=== PATIENT | female | born 1995 | race Two or more races ===

== ENCOUNTER → 2020-03-14 12:12 | Outpatient (BNVA) | payer OTHER, SELFPAY | PROVIDERS: PCP Internal Medicine; Visit Provider Surgery | DX: E66.01 Morbid (severe) obesity due to excess calories (principal); Z68.41 Body mass index [BMI] 40.0-44.9, adult; R06.02 Shortness of breath | CPT/HCPCS: 99212 ==

== ENCOUNTER 2020-03-25 11:40 | Outpatient (REF) | payer OTHER, SELFPAY ==
--- NOTE | 2020-03-25 11:50 | ECG_ITS ---
Test Reason : PREOP Blood Pressure : / mmHG Vent. Rate : 062 BPM Atrial Rate : 062 BPM P-R Int : 132 ms QRS Dur : 086 ms QT Int : 408 ms P-R-T Axes : 009 016 006 degrees QTc Int : 414 ms Normal sinus rhythm with sinus arrhythmia Normal ECG When compared with ECG of 02-SEP-2018 12:30, No significant change was found Referred By: Cathi Carolina Electronically Signed By:LOPEZ BOYLE MD
--- NOTE | 2020-03-25 12:20 | XR_ITS ---
EXAMINATION: XR CHEST CLINICAL INFORMATION: Shortness of breath COMPARISON: Previous chest x-ray August 2018 TECHNIQUE: 2 views of the chest were obtained. FINDINGS: No significant abnormality is noted involving the heart, lungs, mediastinum, bony thorax or soft tissues. XR/XR chest 2V IMPRESSION: Unremarkable examination.
[2020-03-25 12:22] LABS: MANUAL DIFF FLAG NO
[2020-03-25 12:31] LABS: Basophils Percent Auto 0.4 % (0-2); Eosinophils Absolute Auto 0.1 X10*3/uL (0.0-0.4); Eosinophils Percent Auto 2.7 % (0-4); Hematocrit 39.7 % (37-47); Hemoglobin 13.4 g/dl (12.0-16.0); Imm Gran Abs Auto 0.01 X10*3/uL (0.00-0.03); Imm Gran Pct Auto 0.2 % (0.0-0.4); Lymphocytes Absolute Auto 1.7 X10*3/uL (1.2-4.9); Mean Corpuscular HGB Conc 33.8 g/dl (31.0-35.0); Mean Corpuscular Hemoglobin 30.4 pg (27.0-33.0); Mean Platelet Volume 9.2 fL (9.4-12.3); Monocytes Absolute Auto 0.3 X10*3/uL (0.1-1.2); Monocytes Percent Auto 6.7 % (2-11); Neutrophils Absolute Auto 2.4 X10*3/uL (2.0-8.3); Platelet Count 377 X10*3/uL (160-400); Red Blood Count 4.41 X10*6/uL (4.20-5.50); Red Cell Distribution Width 12.4 % (11.0-16.0); White Blood Count 4.5 X10*3/uL (4.8-10.8)
[2020-03-25 13:09] LABS: Alanine Aminotransferase 22 U/L (0-31); Albumin Level 4.3 g/dL (3.5-5.0); Alkaline Phosphatase 65 U/L (39-117); Anion Gap 15 (12-20); Aspartate Amino Transferase 18 U/L (5-31); Bilirubin Total 0.4 mg/dL (0.0-1.0); Blood Urea Nitrogen 10 mg/dL (9-16); C Reactive Protein 0.33 mg/dL (< or = 0.50); Calcium 8.9 mg/dL (8.4-10.2); Carbon Dioxide 22 mmol/L (22-29); Chloride 108 mmol/L (96-108); Cholesterol 160 mg/dL; Estimated Glomerular Filt Rate > 60; Glucose Fasting 90 mg/dL (60-99); HDL Cholesterol 41 mg/dL; Iron 73 mcg/dL (30-160); LDL Cholesterol Calculated 102 mg/dl; Percent Iron Saturation 19 % (15-50); Potassium 4.4 mmol/l (3.3-5.1); Sodium 141 mmol/L (135-145); Total Iron Binding Capacity 394 mcg/dL (228-428); Total Protein 7.1 g/dL (6.5-8.0); Triglycerides 88 mg/dL; Unsaturated Iron Binding 321 ug/dL
[2020-03-25 13:23] LABS: Thyroid Stimulating Hormone 0.83 uIU/mL (0.32-4.0); Vitamin D 25-OH Total 10.5 ng/mL (>30)
[2020-03-25 13:44] LABS: Vitamin B12 705 pg/mL (200-900)
[2020-03-28 16:32] LABS: Calcium (PTHI) 9.1 mg/dL (8.6-10.2); PTHI 47 pg/mL (14-64)
[2020-03-28 23:57] LABS: Zinc 73 mcg/dL (60-130)
[2020-03-29 12:47] LABS: Vitamin B1 8 nmol/L (8-30)
[2020-03-30 22:08] LABS: Vitamin A 41 mcg/dL (38-98)
== END 2020-03-25 11:41 | disposition home or self-care (01) ==
LOC: HO.LAB 11:40
PROVIDERS: PCP Internal Medicine; Visit Provider Surgery
DX: Z01.818 Encounter for other preprocedural examination (principal); R06.02 Shortness of breath
CPT/HCPCS: 36415; 71046; 80053; 80061; 82306; 82607; 83540; 83970; 84425; 84443; 84590; 84630; 85025; 86140; 93005

== ENCOUNTER → 2020-03-31 08:08 | Outpatient (BNVA) | payer OTHER, SELFPAY | PROVIDERS: PCP Internal Medicine; Visit Provider Surgery ==

== ENCOUNTER → 2020-04-14 08:11 | Outpatient (BNVA) | payer OTHER, SELFPAY | PROVIDERS: PCP Internal Medicine; Visit Provider Dietitian, Registered ==

== ENCOUNTER → 2022-01-24 12:48 | Outpatient (BNVA) | payer OTHER, SELFPAY | PROVIDERS: PCP Internal Medicine; Visit Provider Physician Assistant Surgical | DX: E66.01 Morbid (severe) obesity due to excess calories (principal); Z68.41 Body mass index [BMI] 40.0-44.9, adult | CPT/HCPCS: 99212 ==

== ENCOUNTER 2022-01-30 09:05 | Outpatient (REF) | payer OTHER, SELFPAY ==
--- NOTE | ~2022-01-30 | XR_ITS ---
EXAMINATION: XR CHEST CLINICAL INFORMATION: Obesity COMPARISON: Previous chest x-ray most recent March 2020 TECHNIQUE: 2 views of the chest were obtained. FINDINGS: No significant abnormality is noted involving the heart, lungs, mediastinum, bony thorax or soft tissues. XR/XR chest 2V IMPRESSION: Unremarkable examination.
[2022-01-30 09:17] LABS: MANUAL DIFF FLAG NO
--- NOTE | 2022-01-30 09:27 | ECG_ITS ---
Test Reason : rhythm ck Blood Pressure : / mmHG Vent. Rate : 070 BPM Atrial Rate : 070 BPM P-R Int : 140 ms QRS Dur : 086 ms QT Int : 396 ms P-R-T Axes : 017 011 -03 degrees QTc Int : 427 ms Normal sinus rhythm with sinus arrhythmia Normal ECG When compared with ECG of 25-MAR-2020 11:55, No significant change was found Referred By: Konstantin Davis Electronically Signed By:VIVIAN BUITRAGO MD
[2022-01-30 09:59] LABS: Basophils Percent Auto 0.8 % (0-2); Eosinophils Absolute Auto 0.2 X10*3/uL (0.0-0.4); Eosinophils Percent Auto 3.8 % (0-4); Hematocrit 38.9 % (37.0-47.0); Hemoglobin 12.8 g/dl (12.0-16.0); Imm Gran Abs Auto 0.02 X10*3/uL (0.00-0.03); Imm Gran Pct Auto 0.5 % (0.0-0.4); Lymphocytes Absolute Auto 1.4 X10*3/uL (1.2-4.9); Lymphocytes Percent Auto 35.5 % (20-40); Mean Corpuscular HGB Conc 32.9 g/dl (31.0-35.0); Mean Corpuscular Hemoglobin 28.6 pg (27.0-33.0); Mean Corpuscular Volume 86.8 fL (80.0-98.0); Mean Platelet Volume 9.4 fL (9.4-12.3); Monocytes Absolute Auto 0.2 X10*3/uL (0.1-1.2); Monocytes Percent Auto 5.8 % (2-11); Neutrophils Absolute Auto 2.1 x10*3/uL (2.0-8.3); Neutrophils Percent Auto 53.6 % (45-73); Platelet Count 385 X10*3/uL (160-400); Red Blood Count 4.48 X10*6/uL (4.20-5.50); Red Cell Distribution Width 13.1 % (11.0-16.0)
[2022-01-30 10:14] LABS: Estimated Average Glucose 91 mg/dL; Hemoglobin A1c % 4.8 %
[2022-01-30 10:46] LABS: Alanine Aminotransferase 34 U/L (0-31); Albumin Level 4.1 g/dL (3.5-5.0); Alkaline Phosphatase 68 U/L (39-117); Anion Gap 18 (12-20); Aspartate Amino Transferase 27 U/L (5-31); Bilirubin Total 0.3 mg/dL (0.0-1.0); Blood Urea Nitrogen 10 mg/dL (9-16); C Reactive Protein 0.23 mg/dL (< or = 0.50); Calcium 8.5 mg/dL (8.4-10.2); Carbon Dioxide 19 mmol/L (22-29); Chloride 106 mmol/L (96-108); Cholesterol 166 mg/dL; Estimated Glomerular Filt Rate > 60; Ferritin 15 ng/mL (10-122); Glucose Random 87 mg/dL (60-115); HDL Cholesterol 45 mg/dL; Insulin 9 uU/mL (2-29); Iron 60 mcg/dL (30-160); LDL Cholesterol Calculated 103 mg/dl; Percent Iron Saturation 15 % (15-50); Potassium 4.6 mmol/L (3.3-5.1); Sodium 138 mmol/L (135-145); TSH reflex Free T4 1.07 uIU/mL (0.32-4.0); Total Iron Binding Capacity 402 mcg/dL (228-428); Triglycerides 90 mg/dL; Unsaturated Iron Binding 342 ug/dL
[2022-01-30 12:52] LABS: Vitamin B12 723 pg/mL (200-900)
[2022-01-30 13:40] LABS: Vitamin D 25-OH Total 25.1 ng/mL (>30)
[2022-02-02 13:06] LABS: Calcium (PTHI) 8.6 mg/dL (8.6-10.2); PTHI 55 pg/mL (16-77)
[2022-02-05 02:37] LABS: Zinc 87 mcg/dL (60-130)
[2022-02-05 06:02] LABS: Vitamin B1 12 nmol/L (8-30)
[2022-02-06 10:55] LABS: Vitamin A 49 mcg/dL (38-98)
== END 2022-01-30 09:06 | disposition home or self-care (01) ==
LOC: HO.LAB 09:05
PROVIDERS: PCP Internal Medicine; Visit Provider Physician Assistant Surgical
DX: E66.01 Morbid (severe) obesity due to excess calories (principal)
CPT/HCPCS: 36415; 71046; 80053; 80061; 82306; 82607; 82728; 82746; 83036; 83525; 83540; 83970; 84425; 84443; 84590; 84630; 85025; 86140; 93005

== ENCOUNTER → 2022-02-20 10:00 | Outpatient (BNVA) | payer OTHER, SELFPAY | PROVIDERS: PCP Internal Medicine; Referring Provider Physician Assistant Surgical; Visit Provider Counselor Mental Health | DX: F50.81 Binge eating disorder (principal); E66.01 Morbid (severe) obesity due to excess calories; Z68.41 Body mass index [BMI] 40.0-44.9, adult | CPT/HCPCS: 90791 ==

== ENCOUNTER → 2022-02-27 09:24 | Outpatient (BNVA) | payer OTHER, SELFPAY | PROVIDERS: PCP Internal Medicine; Referring Provider Physician Assistant Surgical; Visit Provider Dietitian, Registered | DX: E66.9 Obesity, unspecified (principal); Z68.41 Body mass index [BMI] 40.0-44.9, adult | CPT/HCPCS: 97802 ==

== ENCOUNTER → 2022-03-27 10:30 | Outpatient (BNVA) | payer OTHER, SELFPAY | PROVIDERS: PCP Internal Medicine; Visit Provider Counselor Mental Health | DX: F50.81 Binge eating disorder (principal); E66.01 Morbid (severe) obesity due to excess calories; Z68.41 Body mass index [BMI] 40.0-44.9, adult | CPT/HCPCS: 90832 ==

== ENCOUNTER 2022-04-04 08:53 | Outpatient (REF) | payer OTHER, SELFPAY ==
[2022-04-07 15:17] LABS: H Pylori Breath Test Negative (Negative)
== END 2022-04-04 08:54 | disposition home or self-care (01) ==
LOC: CF 08:53
PROVIDERS: PCP Internal Medicine; Visit Provider Physician Assistant Surgical
DX: E66.01 Morbid (severe) obesity due to excess calories (principal); Z68.41 Body mass index [BMI] 40.0-44.9, adult; F50.81 Binge eating disorder
CPT/HCPCS: 36415; 83013; 99202

== ENCOUNTER → 2022-04-09 09:07 | Outpatient (BNVA) | payer OTHER, SELFPAY | PROVIDERS: PCP Internal Medicine; Visit Provider Physician Assistant Surgical | DX: E66.01 Morbid (severe) obesity due to excess calories (principal); Z68.41 Body mass index [BMI] 40.0-44.9, adult | CPT/HCPCS: 99212 ==

== ENCOUNTER 2022-05-18 08:19 | Outpatient (REF) | payer OTHER, SELFPAY ==
--- NOTE | ~2022-05-18 | US_ITS ---
EXAMINATION: US COMPLETE ABDOMEN WITH LIVER ELASTOGRAPHY CLINICAL INFORMATION: Morbid/severe obesity. COMPARISON: Ultrasound abdomen with Elastography CT 09/29/2018. TECHNIQUE: Real-time imaging of the abdominal viscera. Noninvasive ultrasound liver fibrosis assessment is performed using Ha ElastPQ point quantification shear wave elastography (2D-SWE) with a C5-2 MHz transducer. Multiple elastography samples are obtained. FINDINGS: PANCREAS: Normal. The visualized pancreatic head and body are normal in appearance. The remainder of the pancreas is obscured from visualization by the overlying bowel gas. ABDOMINAL AORTA: The proximal, middle, and distal aortic segments are normal in caliber. INFERIOR VENA CAVA: Visualized portions are normal. LIVER: The liver demonstrates normal size, contour and increased echogenicity. No focal lesion or intrahepatic biliary duct dilatation. The right lobe measures 14.2 cm in length. The left lobe measures 8.4 cm in length. Portal flow is hepatopedal Shear wave liver elastography median stiffness is 1.38 m/s (reference: normal median stiffness is 1.3 m/s or less). IQR/median stiffness to assess sampling precision is 0.04 (reference: good quality data set is IQR/median stiffness of 0.15 or less). GALLBLADDER: Normal. The gallbladder is physiologically distended without evidence of stones, sludge, polyps, wall thickening or pericholecystic fluid. COMMON BILE DUCT: Normal in caliber measuring 0.3 cm in diameter. RIGHT KIDNEY: Normal. No hydronephrosis. No renal calculi or focal parenchymal lesions. The kidney measures 13.3 cm in maximum dimension. LEFT KIDNEY: No hydronephrosis. No renal calculi or focal parenchymal lesions. The kidney measures 11.9 cm in maximum dimension. A lobulated left kidney contour is noted. There is trace fullness of the left pelvis which appears lobulated. SPLEEN: Normal. The spleen measures 11.2 cm in maximum dimension. FREE FLUID: None. US/US abdomen comp w elastography IMPRESSION: 1. Mild hepatic steatosis without focal lesion. 2. Trace fullness of pelvis with a lobulated left knee contour. 3. Liver elastography: Median liver stiffness measures 1.38 m/s. Previously it measured 1.7 m/s and has decreased since last ultrasound 09/29/2018. The improvement could be due to technical factors on previous study with better scan on the present study. REFERENCE: Society of Radiologists in Ultrasound Liver Stiffness Thresholds (2020): LIVER STIFFNESS THRESHOLDS: *Liver Stiffness equal or less than 1.3 m/s: High probability of being normal. *Liver Stiffness less than 1.7 m/s: In the absence of other known clinical signs, rules out compensated advanced chronic liver disease. *Liver Stiffness 1.7-2.1 m/s: Suggestive of compensated advanced chronic liver disease but need further test for confirmation. *Liver Stiffness over 2.1 m/s: Rules in compensated advanced chronic liver disease. *Liver Stiffness over 2.4 m/s: Suggestive of clinically significant portal hypertension. QUALITY OF DATA SET: *IQR/Median value equal or less than 0.15 implies a quality data set. *IQR/Median value over 0.15 implies a poor quality data set. SIGNIFICANT CHANGE FROM PRIOR EXAM: Significant change if liver stiffness measurement is 10% or greater from prior exam. OTHER CONSIDERATIONS: The stage of liver fibrosis may be overestimated in the setting of acute hepatitis, liver inflammation, elevated liver function tests, hepatic vascular congestion, obstructive cholestasis, non-fasting state, and infiltrative diseases such as amyloidosis and lymphoma. In some patients with NAFLD, the liver stiffness thresholds for compensated advanced chronic liver disease may be lower. In causes other than viral hepatitis and NAFLD, liver stiffness thresholds are not well established.
--- NOTE | ~2022-05-18 | FL_ITS ---
EXAMINATION: XR FLUOROSCOPY UPPER GI WITH AIR CLINICAL INFORMATION: Morbid/severe obesity due to excess calories. COMPARISON: None. TECHNIQUE: Routine upper GI air-contrast study is performed. FINDINGS: Following oral administration of thick barium and effervescent granules there is normal propagation of bolus from the oral cavity through the pharynx, esophagus into stomach without any evidence of obstruction, narrowing or stricture. On placing patient supine and prone lying, the course, caliber and peristalsis of stomach, duodenal bulb and the sweep is normal. Mucosal pattern of the stomach and the duodenum is normal. There is a large gastroesophageal reflux into the upper mid esophagus but no hiatal hernia seen. FLUOROSCOPY TIME: 1.6 minutes. DOSE AREA PRODUCT: 39.266 uGy-m2 (microgray-meter squared) FL/FL upper GI w air IMPRESSION: Large gastroesophageal reflux without hiatal hernia. Otherwise unremarkable upper GI air-contrast study.
== END 2022-05-18 08:20 | disposition home or self-care (01) ==
LOC: HO.US 08:19
PROVIDERS: PCP Internal Medicine; Visit Provider Physician Assistant Surgical
DX: Z01.818 Encounter for other preprocedural examination (principal); E66.01 Morbid (severe) obesity due to excess calories; K21.9 Gastro-esophageal reflux disease without esophagitis
CPT/HCPCS: 74246; 76705; 76981

== ENCOUNTER → 2022-05-23 14:12 | Outpatient (BNVA) | payer OTHER, SELFPAY | PROVIDERS: PCP Internal Medicine; Visit Provider Physician Assistant Surgical ==

== ENCOUNTER → 2022-05-29 09:24 | Outpatient (BNVA) | payer OTHER, SELFPAY | PROVIDERS: PCP Internal Medicine; Visit Provider Surgery | DX: E66.01 Morbid (severe) obesity due to excess calories (principal); Z68.41 Body mass index [BMI] 40.0-44.9, adult; F50.81 Binge eating disorder; E55.9 Vitamin D deficiency, unspecified | CPT/HCPCS: 99212 ==

== ENCOUNTER → 2022-06-01 12:52 | Outpatient (BNVA) | payer OTHER, SELFPAY | PROVIDERS: PCP Internal Medicine; Visit Provider Surgery ==

== ENCOUNTER 2022-06-04 09:50 | Outpatient (REF) | payer OTHER, SELFPAY ==
[2022-06-04 10:12] LABS: MANUAL DIFF FLAG NO
[2022-06-04 10:56] LABS: Basophils Percent Auto 0.5 % (0-2); Eosinophils Absolute Auto 0.1 X10*3/uL (0.0-0.4); Hematocrit 39.5 % (37.0-47.0); Hemoglobin 12.7 g/dl (12.0-16.0); Imm Gran Abs Auto 0.02 X10*3/uL (0.00-0.03); Imm Gran Pct Auto 0.4 % (0.0-0.4); Lymphocytes Absolute Auto 1.5 X10*3/uL (1.2-4.9); Lymphocytes Percent Auto 27.2 % (20-40); Mean Corpuscular HGB Conc 32.2 g/dl (31.0-35.0); Mean Corpuscular Volume 83.9 fL (80.0-98.0); Mean Platelet Volume 8.9 fL (9.4-12.3); Monocytes Absolute Auto 0.2 X10*3/uL (0.1-1.2); Monocytes Percent Auto 4.1 % (2-11); Neutrophils Absolute Auto 3.7 x10*3/uL (2.0-8.3); Neutrophils Percent Auto 65.8 % (45-73); Platelet Count 404 X10*3/uL (160-400); Red Blood Count 4.71 X10*6/uL (4.20-5.50); Red Cell Distribution Width 13.2 % (11.0-16.0); White Blood Count 5.6 X10*3/uL (4.8-10.8)
[2022-06-04 10:59] LABS: Prothrombin Time 11.5 SEC (10.0-13.1)
[2022-06-04 11:01] LABS: Partial Thromboplastin Time 31.4 SEC (26.0-36.4)
[2022-06-04 11:11] LABS: Estimated Average Glucose 91 mg/dL; Hemoglobin A1c % 4.8 %
[2022-06-04 11:53] LABS: Alanine Aminotransferase 16 U/L (0-31); Albumin Level 4.2 g/dL (3.5-5.0); Alkaline Phosphatase 66 U/L (39-117); Anion Gap 15 (12-20); Aspartate Amino Transferase 16 U/L (5-31); Bilirubin Total 0.5 mg/dL (0.0-1.0); Blood Urea Nitrogen 12 mg/dL (9-16); C Reactive Protein 0.19 mg/dL (< or = 0.50); Calcium 8.9 mg/dL (8.4-10.2); Carbon Dioxide 21 mmol/L (22-29); Chloride 104 mmol/L (96-108); Cholesterol 186 mg/dL; Estimated Glomerular Filt Rate > 60; Glucose Random 87 mg/dL (60-115); HDL Cholesterol 50 mg/dL; Iron 55 mcg/dL (30-160); LDL Cholesterol Calculated 116 mg/dl; Percent Iron Saturation 14 % (15-50); Potassium 4.4 mmol/L (3.3-5.1); Sodium 136 mmol/L (135-145); Total Iron Binding Capacity 380 mcg/dL (228-428); Triglycerides 103 mg/dL; Unsaturated Iron Binding 325 ug/dL
[2022-06-04 12:07] LABS: Ferritin 10 ng/mL (10-122); TSH reflex Free T4 0.93 uIU/mL (0.32-4.0); Vitamin B12 789 pg/mL (200-900); Vitamin D 25-OH Total 31.7 ng/mL (>30)
[2022-06-05 16:13] LABS: Calcium (PTHI) 9.5 mg/dL (8.6-10.2); PTHI 31 pg/mL (16-77)
[2022-06-07 01:43] LABS: Zinc 83 mcg/dL (60-130)
[2022-06-08 12:23] LABS: Vitamin B1 15 nmol/L (8-30)
[2022-06-08 17:59] LABS: Vitamin A 54 mcg/dL (38-98)
== END 2022-06-04 09:51 | disposition home or self-care (01) ==
LOC: HO.LAB 09:50
PROVIDERS: PCP Internal Medicine; Visit Provider Surgery
DX: F50.81 Binge eating disorder (principal); E66.01 Morbid (severe) obesity due to excess calories; Z68.39 Body mass index [BMI] 39.0-39.9, adult
CPT/HCPCS: 36415; 80053; 80061; 82306; 82607; 82728; 83036; 83540; 83970; 84425; 84443; 84590; 84630; 85025; 85610; 85730; 86140

== ENCOUNTER 2022-06-06 06:11 | Inpatient (IN) | payer OTHER, SELFPAY ==
[2022-05-24 14:15] VITALS: BMI 40.3
--- NOTE | 2022-06-05 10:47 | HO.ANESPROP2 ---
Documented by User: Rachna Dietz NP 06/05/22 10:49 HPI - Anesthesia Eval Consult details Narrative: 27yo F for Gastrectomy Sleeve Egd,possible diaphragmatic hernia,possible ventral hernia,possible open PMFSH Active Problems Active Problems: All Active Problems (Updated 05/24/22 @ 14:18 by Shazia Gonzalez, NEYDA) Body mass index (BMI) of 40.1-44.9 in adult (Acute) Preoperative examination (Acute) Shortness of breath (Acute) Vitamin D deficiency (Acute) BMI 39.0-39.9,adult (Acute) Binge-eating disorder, mild (Acute) Morbid obesity due to excess calories (Acute) Past Medical History Medical History Depression Low back pain Morbid obesity due to excess calories Family History Family History Father No problems noted. Mother No problems noted. Son No problems noted. Son No problems noted. Maternal Grandfather Brain cancer Maternal Aunt Breast cancer Son Hypertrophic cardiomyopathy Sister No problems noted. Sister No problems noted. Sister No problems noted. Surgical History Surgical History Hx of section No pertinent past surgical history Social History Social History Household Members: Family Are you a primary health care consultant to a significant other at home: Yes (3 children, youngest 18 months) Do you presently have visiting nurse or other home services: No Alcohol intake: former Patient Tobacco Use Status: Never used Tobacco Use of substances other than those prescribed or required for medical reasons: No Have you been hit, kicked, punched, or otherwise hurt by someone within the past year? If so, by whom?: No Are you DNR?: No Advance Directives: No Advance Directives Information Provided: Yes Advance Directives on File: No Recently lost weight without trying: No Nutrition Risks: No Nutritional Risk Patient : No FDLMP: 05/16/2022 : No Poor oral hygiene: No Meds Allergies Allergy/AdvReac Type Severity Reaction Status Date / Time No Known Allergies Allergy Verified 05/29/22 09:38 Home Medications Medication Instructions Recorded Confirmed Last Taken Type fluoxetine 40 mg capsule 40 mg PO DAILY 01/16/22 06/06/22 06/05/22 History Exam Exam Date and Time: June 05, 2022 1047 Height,Weight and Vital Signs: Height 5 ft 8 in Weight 120.202 kg Pertinent Lab Results Pertinent Lab Results: Laboratory Tests 06/04/22 10:06 Blood Type A Positive Antibody Screen NEGATIVE Laboratory Tests 06/04/22 06/04/22 10:10 10:10 WBC 5.6 Hgb 12.7 Hct 39.5 Plt Count 404 H Sodium 136 Potassium 4.4 Chloride 104 Carbon Dioxide 21 L BUN 12 Creatinine 0.73 Narrative Narrative: EKG 01/2022 Vent. Rate : 070 BPM ? ? Atrial Rate : 070 BPM ?? P-R Int : 140 ms? QRS Dur : 086 ms ? ? QT Int : 396 ms ? ? ? P-R-T Axes : 017 011 -03 degrees ?? QTc Int : 427 ms ? Normal sinus rhythm with sinus arrhythmia Normal ECG When compared with ECG of 25-MAR-2020 11:55, No significant change was found Assessment and Plan Assessment Anesthesia Assessment: Chart Reviewed Documented by User: George Bueno MD 06/06/22 17:50 PMFSH Past Medical History Medical History Depression Low back pain Morbid obesity due to excess calories Functional capacity: independent ambulation Family History Family History Father No problems noted. Mother No problems noted. Son No problems noted. Son No problems noted. Maternal Grandfather Brain cancer Maternal Aunt Breast cancer Son Hypertrophic cardiomyopathy Sister No problems noted. Sister No problems noted. Sister No problems noted. Family history of problems with anesthesia: No Surgical History Surgical History Hx of section No pertinent past surgical history History of Problems with Anesthesia: No Social History Social History Household Members: Family Are you a primary health care consultant to a significant other at home: Yes (3 children, youngest 18 months) Do you presently have visiting nurse or other home services: No Alcohol intake: former Patient Tobacco Use Status: Never used Tobacco Use of substances other than those prescribed or required for medical reasons: No Have you been hit, kicked, punched, or otherwise hurt by someone within the past year? If so, by whom?: No Are you DNR?: No Advance Directives: No Advance Directives Information Provided: Yes Advance Directives on File: No Recently lost weight without trying: No Nutrition Risks: No Nutritional Risk Patient : No FDLMP: 05/16/2022 : No Poor oral hygiene: No Meds Allergies Allergy/AdvReac Type Severity Reaction Status Date / Time No Known Allergies Allergy Verified 05/29/22 09:38 Home Medications Medication Instructions Recorded Confirmed Last Taken Type fluoxetine 40 mg capsule 40 mg PO DAILY 01/16/22 06/06/22 06/05/22 History Exam Airway Mallampati Class: III TM Dist: >3cm Neck ROM: Full Loose/Missing/Broken Teeth: Yes Heart: S1,S2 Lungs: b/l breath sounds Assessment and Plan Assessment Anesthesia Assessment: Anesthesia Plan Discussed Final Anesthetic Review Family History of Problems with Anesthesia: No History of Problems with Anesthesia: No NPO: Yes ASA Class: III Final Preanesthetic Review: Meds/Allgs Chart Reviewed, Consent Obtained/Reviewed and Anes Risks/Benef Reviewed Patient Risk: Intermediate Procedure Risk: Intermediate Assessment/Block/Sedation in SS: Assess/Block/Sedation-SS Anesthetic Plan Anesthetic Plan: GA and Agree w/ Assess. and Plan Disposition: Standard PACU
[2022-06-05 12:58] LABS: COVID-19 Test Negative (Negative); IDNOW Serial# BCCEAD1C
[2022-06-06] VITALS (11 sets, daily range): BP systolic 114–148; BP diastolic 64–93; PULSE 65–113; RESP 14–24; TEMP 36.1–37; O2SAT 97–100
--- OUTSIDE RECORDS SUMMARY | 2022-06-06 06:15 | XMS_ITS | Continuity of Care Document ---
Author Name Unknown Organization [facility] Address [address] [place] [id number]- Care Team Providers Care News Wire Photo Operator Name Role Phone Shellie Tian MD Primary Care Physician [phone] Encounter [facility] Date(s): 04/12/22 - 05/12/[address] [address]- Allergies, Adverse Reactions, Alerts No Known Allergies Immunizations Given and Recorded Vaccine Date Status Refusal Reason influenza virus vaccine, inactivated 01/11/22 Give n influenza virus vaccine, inactivated 12/30/20 Give n influenza virus vaccine, inactivated 12/20/17 Timbo rded influenza virus vaccine, inactivated 04/14/15 Timbo rded SARS-CoV-2 mRNA ([id number]) vax 09/21/21 Recorded SARS-CoV-2 (COVID-19) mRNA BNT-162b2 vac 12/30/20 Given tetanus/diphtheria/pertussis, acel(Tdap) 10/20/20 Given tetanus/diphtheria/pertussis, acel(Tdap) 11/08/17 Recorded tetanus/diphtheria/pertussis, acel(Tdap) 07/29/15 Given Medications acetaminophen 325 mg oral tablet 650 mg, 2, tablet, By Mouth, 3 times a day, PRN, # 24 tablet, Refills 0, Tot. Refills 0, Maintenance, for pain, 12/30/20 3:55:00 EDT, Route to Pharmacy Electronically, [facility]/pharmacy #[id number], 173, cm, 12/30/20 0:15:00 EDT, Height, 130.5, kg, 12/28/20 8:26... Start Date: 12/30/20 Stop Date: 01/13/21 Status: Ordered cetirizine 10 mg oral capsule 1 capsule = 10 mg, By Mouth, 2 times a day, PRN for allergy symptoms, # 60 capsule, 1 Refills, Maintenance, 09/07/21 14:15:00 EDT, Capsule, [facility]/pharmacy #[id number], Partial fill upon patient request if the prescription is for a schedule II opioid drug., 17... Start Date: 09/07/21 Status: Ordered diclofenac 1% topical gel 1 application, Topically, 4 times a day, # 100 Gm, 11 Refills, Maintenance, 08/24/21 11:48:00 EDT, Gel, [facility]/pharmacy #[id number], Partial fill upon patient request if the prescription is for a schedule II opioid drug., 173, cm, 08/10/21 16:06:00 EDT, Height... Start Date: 08/24/21 Status: Ordered FLUoxetine 40 mg oral capsule 1 capsule = 40 mg, By Mouth, Daily, # 30 capsule, 4 Refills, Maintenance, 01/11/22 15:58:00 EDT, Capsule, [facility]/pharmacy #[id number], discontinue sertraline, 173, cm, 01/11/22 15:29:00 EDT, Height, 130.5, kg, 12/28/20 8:26:00 EDT, Dry Weight Start Date: 01/11/22 Status: Ordered ibuprofen 600 mg oral tablet 1/2 TO 1 TAB, By Mouth, Every 6 hours, PRN, # 60 tablet, Refills 0, Maintenance, NEEDED FOR PAIN, 11/29/21 5:00:00 EDT, Route to Pharmacy Electronically, [id number], 173, cm, 09/07/21 13:31:00 EDT, Height, 130.5, kg, 12/28/20 8:26:00 EDT, Dry... Start Date: 11/29/21 Status: Ordered metFORMIN 500 mg oral tablet, extended release 2 tablet = 1,000 mg, By Mouth, 2 times a day, 1 tab daily x 1 week then 1 tab BID x 1 week then 2 tabs BID, # 120 tablet, 4 Refills, Maintenance, 01/11/22 15:58:00 EDT, [facility]/pharmacy #[id number], Partial fill upon patient request if the prescription is for a... 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 Currently quarantining for two weeks Social History Social History Type Response Smoking Status Never (less than 100 in lifetime) entered on: 05/23/20 Sex Patient Care team information Care Team Personnel Name: Shellie Tian MD Position: [facility] Primary Care Physician Member Role: PCP Address: Address: [address] [place] [address], -[facility] [place] [address]- Care Team Related Persons Name: MEREDITH HAYES Address: Address: home [address] [place] [address] Name: ALISHA MAYFIELD Address: home [address] [place] [address]
--- OUTSIDE RECORDS SUMMARY | 2022-06-06 06:16 | XMS_ITS | Continuity of Care Document ---
Author Name Unknown Organization [facility] Address [address] [place] [address]- Care Team Providers Care Computer Methods Analyst Name Role Phone Shellie Tian MD Primary Care Physician Encounter [facility] Date(s): 04/12/22 - 05/12/22 [facility] [address] [place] [id number] Allergies, Adverse Reactions, Alerts No Known Allergies Immunizations Given and Recorded Vaccine Date Status Refusal Reason influenza virus vaccine, inactivated 01/11/22 Give n influenza virus vaccine, inactivated 12/30/20 Give n influenza virus vaccine, inactivated 12/20/17 Timbo rded influenza virus vaccine, inactivated 04/14/15 Timbo rded SARS-CoV-2 mRNA ([id number]) vax 09/21/21 Recorded SARS-CoV-2 (COVID-19) mRNA BNT-162b2 vac 12/30/20 Given tetanus/diphtheria/pertussis, acel(Tdap) 10/20/20 Given tetanus/diphtheria/pertussis, acel(Tdap) 11/08/17 Recorded tetanus/diphtheria/pertussis, acel(Tdap) 07/29/15 Given Medications acetaminophen 325 mg oral tablet 650 mg, 2, tablet, By Mouth, 3 times a day, PRN, # 24 tablet, Refills 0, Tot. Refills 0, Maintenance, for pain, 12/30/20 3:55:00 EDT, Route to Pharmacy Electronically, [facility]/pharmacy #[id number], 173, cm, 12/30/20 0:15:00 EDT, Height, 130.5, kg, 12/28/20 8:26... Start Date: 12/30/20 Stop Date: 01/13/21 Status: Ordered cetirizine 10 mg oral capsule 1 capsule = 10 mg, By Mouth, 2 times a day, PRN for allergy symptoms, # 60 capsule, 1 Refills, Maintenance, 09/07/21 14:15:00 EDT, Capsule, [facility]/pharmacy #[id number], Partial fill upon patient request if the prescription is for a schedule II opioid drug., 17... Start Date: 09/07/21 Status: Ordered diclofenac 1% topical gel 1 application, Topically, 4 times a day, # 100 Gm, 11 Refills, Maintenance, 08/24/21 11:48:00 EDT, Gel, [facility]/pharmacy #[id number], Partial fill upon patient request if the prescription is for a schedule II opioid drug., 173, cm, 08/10/21 16:06:00 EDT, Height... Start Date: 08/24/21 Status: Ordered FLUoxetine 40 mg oral capsule 1 capsule = 40 mg, By Mouth, Daily, # 30 capsule, 4 Refills, Maintenance, 01/11/22 15:58:00 EDT, Capsule, [facility]/pharmacy #[id number], discontinue sertraline, 173, cm, 01/11/22 15:29:00 EDT, Height, 130.5, kg, 12/28/20 8:26:00 EDT, Dry Weight Start Date: 01/11/22 Status: Ordered ibuprofen 600 mg oral tablet 1/2 TO 1 TAB, By Mouth, Every 6 hours, PRN, # 60 tablet, Refills 0, Maintenance, NEEDED FOR PAIN, 11/29/21 5:00:00 EDT, Route to Pharmacy Electronically, [facility]ORE [id number], 173, cm, 09/07/21 13:31:00 EDT, Height, 130.5, [...] Team Personnel Name: Shellie Tian MD Position: [facility] Primary Care Physician Member Role: PCP Address: Address: [address] [place] [address], -[facility] [place] [address]- Care Team Related Persons Name: MEREDITH HAYES Address: Address: home [address] [place] [address] [place] Name: ALISHA MAYFIELD Address: home [address] [place] [address]
--- OUTSIDE RECORDS SUMMARY | 2022-06-06 06:16 | XMS_ITS | Continuity of Care Document ---
Author Name Unknown Organization [facility] Address [address] [place] [address]- Care Team Providers Care White Work Cleaner Name Role Phone Shellie Tian MD Primary Care Physician [phone] [place] [facility] [place]s): 04/17/22 - 05/17/22 [facility] [address] [place] [address] Allergies, Adverse Reactions, Alerts No Known Allergies Immunizations Given and Recorded Vaccine Date Status Refusal Reason influenza virus vaccine, inactivated 01/11/22 Give n influenza virus vaccine, inactivated 12/30/20 Give n influenza virus vaccine, inactivated 12/20/17 Timbo rded influenza virus vaccine, inactivated 04/14/15 Timbo rded SARS-CoV-2 mRNA ([id number]) vax 09/21/21 Recorded SARS-CoV-2 (COVID-19) mRNA BNT-162b2 vac 12/30/20 Given tetanus/diphtheria/pertussis, acel(Tdap) 10/20/20 Given tetanus/diphtheria/pertussis, acel(Tdap) 11/08/17 Recorded tetanus/diphtheria/pertussis, acel(Tdap) 07/29/15 Given Medications acetaminophen 325 mg oral tablet 650 mg, 2, tablet, By Mouth, 3 times a day, PRN, # 24 tablet, Refills 0, Tot. Refills 0, Maintenance, for pain, 12/30/20 3:55:00 EDT, Route to Pharmacy Electronically, [facility]/pharmacy #[id number], 173, cm, 12/30/20 0:15:00 EDT, Height, 130.5, kg, 12/28/20 8:26... Start Date: 12/30/20 Stop Date: 01/13/21 Status: Ordered cetirizine 10 mg oral capsule 1 capsule = 10 mg, By Mouth, 2 times a day, PRN for allergy symptoms, # 60 capsule, 1 Refills, Maintenance, 09/07/21 14:15:00 EDT, Capsule, [facility]/pharmacy #[id number], Partial fill upon patient request if the prescription is for a schedule II opioid drug., 17... Start Date: 09/07/21 Status: Ordered diclofenac 1% topical gel 1 application, Topically, 4 times a day, # 100 Gm, 11 Refills, Maintenance, 08/24/21 11:48:00 EDT, Gel, [facility]/pharmacy #[id number], Partial fill upon patient request if the prescription is for a schedule II opioid drug., 173, cm, 08/10/21 16:06:00 EDT, Height... Start Date: 08/24/21 Status: Ordered FLUoxetine 40 mg oral capsule 1 capsule = 40 mg, By Mouth, Daily, # 30 capsule, 4 Refills, Maintenance, 01/11/22 15:58:00 EDT, Capsule, [facility]/pharmacy #[id number], discontinue sertraline, 173, cm, 01/11/22 15:29:00 EDT, Height, 130.5, kg, 12/28/20 8:26:00 EDT, Dry Weight Start Date: 01/11/22 Status: Ordered ibuprofen 600 mg oral tablet 1/2 TO 1 TAB, By Mouth, Every 6 hours, PRN, # 60 tablet, Refills 0, Maintenance, NEEDED FOR PAIN, 11/29/21 5:00:00 EDT, Route to Pharmacy Electronically, [facility]ORE [id number], 173, cm, 09/07/21 13:31:00 EDT, Height, 130.5, [...] Team Personnel Name: Shellie Tian MD Position: [facility] Primary Care Physician Member Role: PCP Address: Address: [address] [place] [address], -[facility] [place] [address]- Care Team Related Persons Name: MEREDITH HAYES Address: Address: home [address] [place] [address] [place] Name: ALISHA MAYFIELD Address: [address] [place] [address]
--- OUTSIDE RECORDS SUMMARY | 2022-06-06 06:16 | XMS_ITS | Continuity of Care Document ---
Author Name Unknown Organization [facility] Address [address] [place] [address]- Care Team Providers Care Transmission Maintenance Supervisor Name Role Phone Shellie Tian MD Primary Care Physician [phone] [place] [facility] [place]): [place]/12/22 - 05/12/22 [facility] [address] [place] [id number] Allergies, Adverse Reactions, Alerts No Known Allergies Immunizations Given and Recorded Vaccine Date Status Refusal Reason influenza virus vaccine, inactivated 01/11/22 Give n influenza virus vaccine, inactivated 12/30/20 Give n influenza virus vaccine, inactivated 12/20/17 Timbo rded influenza virus vaccine, inactivated 04/14/15 Timbo rded SARS-CoV-2 mRNA ([id number]) vax 09/21/21 Recorded SARS-CoV-2 (COVID-19) mRNA BNT-162b2 vac 12/30/20 Given tetanus/diphtheria/pertussis, acel(Tdap) 10/20/20 Given tetanus/diphtheria/pertussis, acel(Tdap) 11/08/17 Recorded tetanus/diphtheria/pertussis, acel(Tdap) 07/29/15 Given Medications acetaminophen 325 mg oral tablet 650 mg, 2, tablet, By Mouth, 3 times a day, PRN, # 24 tablet, Refills 0, Tot. Refills 0, Maintenance, for pain, 12/30/20 3:55:00 EDT, Route to Pharmacy Electronically, [facility]/pharmacy #[id number], 173, cm, 12/30/20 0:15:00 EDT, Height, 130.5, kg, 12/28/20 8:26... Start Date: 12/30/20 Stop Date: 01/13/21 Status: Ordered cetirizine 10 mg oral capsule 1 capsule = 10 mg, By Mouth, 2 times a day, PRN for allergy symptoms, # 60 capsule, 1 Refills, Maintenance, 09/07/21 14:15:00 EDT, Capsule, [facility]/pharmacy #[id number], Partial fill upon patient request if the prescription is for a schedule II opioid drug., 17... Start Date: 09/07/21 Status: Ordered diclofenac 1% topical gel 1 application, Topically, 4 times a day, # 100 Gm, 11 Refills, Maintenance, 08/24/21 11:48:00 EDT, Gel, [facility]/pharmacy #[id number], Partial fill upon patient request if the prescription is for a schedule II opioid drug., 173, cm, 08/10/21 16:06:00 EDT, Height... Start Date: 08/24/21 Status: Ordered FLUoxetine 40 mg oral capsule 1 capsule = 40 mg, By Mouth, Daily, # 30 capsule, 4 Refills, Maintenance, 01/11/22 15:58:00 EDT, Capsule, [facility]/pharmacy #[id number], discontinue sertraline, 173, cm, 01/11/22 15:29:00 EDT, Height, 130.5, kg, 12/28/20 8:26:00 EDT, Dry Weight Start Date: 01/11/22 Status: Ordered ibuprofen 600 mg oral tablet 1/2 TO 1 TAB, By Mouth, Every 6 hours, PRN, # 60 tablet, Refills 0, Maintenance, NEEDED FOR PAIN, 11/29/21 5:00:00 EDT, Route to Pharmacy Electronically, [id number], 173, cm, 09/07/21 13:31:00 EDT, Height, 130.5, [...] Team Personnel Name: Shellie Tian MD Position: [facility] Primary Care Physician Member Role: PCP Address: Address: [address] [place] [address], -[facility] [place] [address]- Care Team Related Persons Name: MEREDITH HAYES Address: Address: home [address] [place] [address] [place] Name: ALISHA MAYFIELD Address: home [address] [place] [address]
[2022-06-06 06:19] LABS: UPreg QC Valid YES; Urine Pregnancy NEGATIVE (NEGATIVE)
[2022-06-06] MEDS: Lactated Ringers 1,000 ML 150 ML IVCONT (06:35)
[2022-06-06] MEDS: Scopolamine 1.5 MG PATCH.TD.3 TRANSDERMA (06:35)
--- NOTE | 2022-06-06 07:02 | MHC.SHP ---
Pre-Procedural Eval Section A Date of Service: 06/06/22 The patient is an INPATIENT: Yes The History & Physical has been completed within 30 days and I have reviewed it.: Yes Section B Chief Complaint: obesity Allergies: Allergies Allergy/AdvReac Type Severity Reaction Status Date / Time No Known Allergies Allergy Verified 05/29/22 09:38 Plan I have reviewed the history and physical and performed a pertinent physical examination on my patient. No changes have occurred unless specified. Time Spent With Patient Time: Total time managing care of this patient today ____ minutes.
--- NOTE | 2022-06-06 07:03 | PM.PROC ---
Brief Operative Note Date of procedure: 06/06/22 Procedure: Preop diagnosis: [Morbid obesity] Postop diagnosis: [same, no hiatal hernia] Procedure: [Laparoscopic sleeve gastrectomy, gastropexy, intraoperative upper endoscopy] Surgeon: Lj Smith MD Assist: [Gris Sorensen PA-C] Anesthesia: [GET, Marcaine, 0.5% with epi] Estimated blood loss: [3cc] Specimen: [Portion of stomach with fundus] Intraoperative findings: [Grossly normal liver and stomach] Indications: [The patient is a 27-year-old woman who reports her heaviest weight as 292 lb/BMI 44.4 when she re-entered the surgical weight loss program. She had originally enrolled in the surgical weight loss program about a year ago but then withdrew after becoming . After previously failing multiple medical weight loss attempts including fad diets and calorie restriction, Education regarding diet and increased activity in options of bariatric surgery were reviewed. The inherent need to remain committed to healthy diet choices and increased activity to augment surgical weight loss was discussed at length and her questions answered. The patient wanted to proceed with a sleeve gastrectomy and discussion of surgery options followed. I reviewed the inherent risks of the planned procedure, a laparoscopic sleeve gastrectomy, possible hiatal hernia repair, possible open surgery, possible ventral hernia repair and intraoperative endoscopy, which include, but are not limited to: Bleeding that could require another operation or blood transfusion; the inherent risks of transfusion reaction infectious disease from blood transfusions; the risk of staple line leaks that could cause sepsis, multi-system organ failure and ; the risk of mesenteric or deep vein thrombosis of the lower extremities that could cause a fatal pulmonary embolism was reviewed; the risk of GERD that could require conversion to gastric bypass was discussed; the risk of recurrent hiatal hernia, especially in the setting of weight regain was reviewed. The risk of weight regain if maladaptive eating and sedentary behavior continue was discussed. The importance of proper diet and increased activity to augment surgical weight loss and the fact that no operation would result in weight loss of poor dietary decisions and sedentary behavior are resumed were discussed at length and apparently understood. The patient had the option of having a hand stone polisher present and declined this option.] Procedure: [The patient was identified by myself in the preoperative holding area and again an operating room 6. The patient was placed supine on the operating table. Safety straps were utilized and a footboard utilized. The patient was induced in general endotracheal anesthesia administered with excellent effect. An appropriate time-out was performed. The patient's abdomen was then widely prepped and draped in the usual manner for surgery using chlorprep. Antibiotics per protocol were administered by Anesthesia, Ancef, 3gm IV. SCD were in place. After infiltrating preemptive local in the skin and subcutaneous tissues in the left upper quadrant, a stab incision was made sharply in the left subcostal abdomen and the Veress needle inserted without incident. An appropriate drop test was performed then a pneumoperitoneum of 15 mmHg was obtained using carbon dioxide. Opening pressures were 7 mmHg. Next, a 5 mm 0 degree scope over a 5 mm Optiview trocar was used to access the abdomen via the epigastric incision in the midline. Once the abdomen was entered, the the trocar obturator was removed and the laparoscope was used to confirm there was no injury from the Veress needle nor trocar insertion injury to the bowel or mesentery, then the scope was switched to a 5 mm 45 degree laparoscope. Next, using preemptive local, additional 5 mm trocars were placed under direct laparoscopic vision on the patient's left abdomen, then right and the 5 mm midline trocar upsized to a 12 mm to accommodate the stapler. The patient was then positioned in reverse Trendelenburg and the liver retractor deployed through the right lateral 5 mm trocar and secured. A 40 Chinese ViSiGi bougie was inserted by Anesthesia per os and advanced to the stomach to decompress. It was then withdrawn to the GE junction all under direct laparoscopic vision. Dissection was begun along the greater curvature using the 5 mm [place] LigaSure for hemostasis and continued to the left jairo of the diaphragm. Dissection was then carried towards the pylorus to 3-4 cm from the pylorus and retro gastric adhesions lysed. The gastroesophageal fat pad was carefully mobilized taking care to avoid injury to the esophagus and stomach and dissection carried towards the short gastrics taking care to avoid injury to the spleen and splenic artery. The diaphragmatic hiatus was carefully examined for a hernia, and no apparent hernia was appreciated. Next, the 40 Fr ViSiGi bougie was advanced by anesthesia under direct vision and laparoscopic guidance and positioned in the antrum approximately 3 cm from the pylorus using laparoscopic graspers to serve as a guide for a stapled sleeve gastrectomy. Stapling was performed with AEON Endo-IGOR stapler with a purple 45 and then orange 45 and 60 loads. The bougie served as a guide to maintain the same sleeve caliber to avoid stricture & sleeve distortion. The 10 mm clip knowledge management advisor was used to apply additional clips to the staple line. Care was taken to be sure that the sleeve laid flat and was without stricture. Once the sleeve was complete, the portion of stomach was placed in the lower abdomen to be sent for removal and permanent section. The staple line, gastrocolic omentum, spleen and short gastric areas were all inspected for hemostasis which was found to be good. The ViSiGi bougie used for a leak test by reducing the reverse Trendelenburg and instilling sterile saline. Anesthesia ran of O2 at 1 L per minute via the bougie and no bubbles were demonstrated from the staple line. Next, the bougie was withdrawn under laparoscopic vision used to suction the esophagus and hypopharynx and then discarded. After inspecting again for hemostasis, a gastropexy was performed using 2-0 Polysorb suture to secure the sleeve gastrectomy to the gastrocolic omentum. Next, I broke scrub perform an on-table upper endoscopy to assess the sleeve and the esophagus and stomach. The patient was returned to neutral position and the Olympus 160 gastroscope was advanced taking care to preserve the endotracheal tube. The esophagus was intubated without incident. Minimal air was insufflated and the scope advanced into the newly formed sleeve. The staple line was inspected for hemostasis and the morphology of the sleeve appeared straight with a uniform diameter. Intraoperatively, there was no evidence of staple line leak seen during laparoscopy as air was insufflated via endoscope. The scope was then used to aspirate the air from the sleeve withdrawn and removed. I then rescrubbed to return to the operative field and again inspected the field for hemostasis. After final assessment for hemostasis, the patient was returned to neutral position, a Cordell used to withdraw the resected gastric specimen which was sent for permanent section. The fascia of the 12 mm midline was closed using an 0 Polysorb figure of 8 on a suture passer under direct laparoscopic vision. The abdomen was then deflated and all trocars removed. The suture was then tied and the skin closed with 4-0 Monocryl subcuticular sutures. The abdomen was then washed and dried, benzoin and Steri-Strips applied followed by Tegaderms. The patient tolerated the procedure well was then extubated the recover in stable condition. All sponge needle and instrument counts were correct x2. At the patient's request, I contacted Anuel Will at [phone] by telephone and apprised him of the operation. Typical postoperative course and expected discharge were reviewed as well as activity restrictions. His questions seemed to be satisfactorily answered.]
--- NOTE | 2022-06-06 07:16 | PHA.MEDREC ---
Pharmacy Consult ? Medication Reconciliation Pharmacy has reviewed the medication reconciliation completed by nursing. Molly Coronel, Jose AlfredoD
--- NOTE | 2022-06-06 10:21 | P.DS_ITS ---
DS: Providers Provider Date of Service: 06/07/22 Date of admission: 06/06/22 06:11 Primary care physician: Shellie Tian MD DS: Summary Hospital Course Hospital Course: ADMITTING DIAGNOSIS: morbid obesity,?depression ? DISCHARGE DIAGNOSIS: same, s/p laparoscopic sleeve gastrectomy and gastropexy ? PAST SURGICAL HISTORY:? ? PROCEDURE: upper endoscopy, laparoscopic sleeve gastrectomy and gastropexy ? DISCHARGE SUMMARY: ? History of Present Illness: ? The patient is a? 27? year-old woman with a BMI of? 40.3 ? kg/m2 and associated co-morbidities as described above. The patient had extensive work-up, lost? ?27 ? lbs preoperatively and was electively scheduled for laparoscopic, possible open sleeve gastrectomy and gastropexy. Risks and complications of the surgery were discussed with the patient in advance, particularly the possibility of , pulmonary embolism, anastomotic leak, bleeding, bowel injury, GERD, cardiac, renal or pulmonary complications. The patient understood all the risks and was in agreement with the surgical plan. ? Hospital Course: ? The patient underwent an uneventful laparoscopic sleeve gastrectomy with gastropexy on the day of admission. Postoperatively, the patient was transferred to the surgical floor. The patient received IV Acetaminophen and IV dilaudid for pain control. Patient was started on bariatric phase 1 diet POD #0. On postoperative day one, the patient was feeling well without nausea, vomiting, fevers, or tachycardia. The patient had some mild incisional pain and the abdomen was soft.? ? On the morning of postoperative day one, the patient was continued on 1 ounce of water or ice every half hour. During the day, the patient did fairly well, having some incisional pain, but able to ambulate adequately and to tolerate liquids well. ? Since the patient is doing well, we decided that the patient was ready to be discharged. The patient was given instructions to follow-up with me next week and to call my office for any fever over 101, persistent abdominal pain, nausea, vomiting, GERD, symptoms of DVT such as calf tenderness, or leg swelling, or pulmonary embolism such as chest pain or shortness of breath.? The patient was also instructed to drink 40-60 ounces of liquids per day using the 1-ounce cups. The patient had been given prescriptions for Tylenol for pain, Zofran prn for nausea, and pantoprazole and carafate previously. The patient was encouraged to ambulate and use the incentive spirometer. The patient was allowed to shower, but no baths, and encouraged to stay active at home. All of these instructions were given to the patient personally. All questions were answered and the patient understood all instructions, the instructions were also given to the patient in print. Time Spent with Patient Time attestation: Total time managing care of this patient today ____ minutes. Discharge coordination time: Less than 30 minutes Quality: Safe Use of Opioids Does Pt have an Active Cancer Diagnosis on the Problem List?: No Quality: Stroke Does the patient have a stroke diagnosis?: No Physical Exam Vital Signs: Vital Signs: Last Vital Signs Temp 97 F 06/06/22 10:12 Pulse 111 H 06/06/22 10:12 Resp 14 06/06/22 10:12 BP 132/84 06/06/22 10:12 Pulse Ox 100 06/06/22 10:12 O2 Del Method Simple Mask 06/06/22 10:12 O2 Flow Rate 6 06/06/22 10:12 BMI result Body Mass Index 40.3 DS: Data Data Completed and Pending Pending studies at discharge: Pending at discharge 06/06/22 09:41 Surgical [PTH] Routine Labs on day of discharge: Laboratory Results - last 24 hr 06/05/22 06/06/22 12:26 06:12 Urine Test NEGATIVE COVID-19 ([facility]) Negative COVID-19 Clin Com See Note Discharge Plan Discharge Anticipated Discharge Date/Time: 06/07/22 10:00 Patient Disposition: Home, Self-Care Discharge Diagnosis: morbid obesity s/p laparoscopic sleeve gastrectomy with gastropexy Referrals: Shellie Tian MD [Primary Care Provider] - 1 Week Discharge Medications: Continued fluoxetine 40 mg capsule 40 mg PO DAILY Discontinued cholecalciferol (vitamin D3) 125 mcg (5,000 unit) capsule 125 mcg PO DAILY Qty: 30 3RF No Action pantoprazole 40 mg tablet,delayed release (DR/EC) 40 mg PO DAILY sucralfate [Carafate] 100 mg/mL suspension 10 ml PO BID Discharge Orders: Discharge Order (Routine); Ordered 06/07/22 Ordered By: Abigail Cloud Activity on Discharge: No heavy lifting Stand Alone Forms: Patient Portal Discharge page Care Plan Goals: weight loss Health Concerns: morbid obesity Plan of Treatment: No tub baths, sex or returning to work until discussed at first post op appointment. No alcohol, tobacco or illegal drug use. Continue to use incentive spirometer hourly while awake. Walk in home for 5- 10 minutes every 2 hours during the first week. Wear abdominal binder with activity. Follow all meal plan instructions from your bariatric surgeon. Review bariatric handbook and call with any questions. Discharge Instructions 1. Please call your doctor or come back to the emergency room should any new symptoms arise. 2. Activity: abstain from alcohol,? limited stair climbing, no bending, no driving, no exercise, no illicit substances, no lifting, no sex, no tub bath, no work. 4. Diet: follow your bariatric surgeons recommendations for advancing diet. 5. Dressing Change/Wound Care: Your incisions are covered with waterproof dressings. You can shower with these and pat dry. Do not rub over dressings or incisions. If the area is tender, you may apply an ice pack for short intervals (no more than 20 minutes on, followed by at least 20 minutes off). Do not apply heat. Do not use creams, lotions, or topical antibiotics unless instructed to do so by your surgeon. 6. Call your doctor if: - Your temperature exceeds 101.5 F - You experience excessive pain or swelling - You have an unexpected reaction to medication - You have excessive bleeding - You experience continued vomiting/nausea - Your incision begins to separate - Your incision shows signs of infection such as increased redness, swelling, excessive pain, heat, or drainage (light blood or clear fluid is normal) General instructions: No lifting greater than 10 lbs for the next 6 weeks[address] driving within 24 hours of taking narcotic pain medications. If you do not move your bowels in the next 2 days, please take milk of magnesia over the counter. Please follow the post op diet and do not advance your diet until you are seen in the office in about 2 weeks. Please walk around your home every hour or two to prevent blood clots from forming in your legs. You do not need to wake from sleeping to walk. Please sleep in a bed or couch to prevent kinking at the hips and knees. Please take your incentive spirometer (your lung wood floor layer) home with you and use it for the next few days to prevent pneumonias. You may shower, no hot tubs, baths or swimming pools. Please call the office with any questions or concerns such as increasing abdominal pain, fever, chills, shortness of breath, chest pain, leg pain or swelling, or redness or drainage from your incisions. Please make sure you are consuming 40-60 ounces of total fluids per day. Avoid all carbonation. Do not hesitate to contact the office with any questions at . The patient's medical history has been reviewed and they are considered low risk for post op DVT and therefore DVT prophylaxis is not considered necessary. Travel after surgery was reviewed. The patient has not disclosed any travel plans during the first 30 days after surgery and they have been advised that within the first 30 days after surgery any bus, plane, train or car travel over 2 hours in duration is contraindicated due to the possibility of developing blood clots from immobility. Any travel, needs to include periods of ambulation of 10 minutes in duration every 2 hours.? The patient was instructed to discuss any plans for travel during this period with their bariatric surgeon. Assessment: s/p laparoscopic sleeve gastrectomy with gastropexy Discharge Date/Time: 06/07/22 09:58
[2022-06-06 10:42] LABS: Hematocrit 36.1 % (37.0-47.0); Hemoglobin 11.8 g/dl (12.0-16.0)
[2022-06-06 10:54] LABS: Anion Gap 13 (12-20); Blood Urea Nitrogen 8 mg/dL (9-16); Calcium 8.4 mg/dL (8.4-10.2); Carbon Dioxide 21 mmol/L (22-29); Chloride 107 mmol/L (96-108); Creatinine Clr Calc Pharmacy 143.6; Estimated Glomerular Filt Rate > 60; Glucose Random 166 mg/dL (60-115); Potassium 4.1 mmol/L (3.3-5.1); Sodium 137 mmol/L (135-145)
--- NOTE | 2022-06-06 10:55 | P.PNGS_ITS ---
Subjective Subjective Date of Service: 06/06/22 Patient reports: nausea Interval history: Patient seen in PACU. She reports some gas pain and nausea but no vomiting. Staff was concerned about the epigastric dressing with some blood staining. Patient denies shortness of breath Physical Exam Vital Signs: Vital Signs: Last Vital Signs Temp 97.2 F 06/06/22 10:42 Pulse 108 H 06/06/22 10:42 Resp 21 H 06/06/22 10:42 BP 123/76 06/06/22 10:42 Pulse Ox 98 06/06/22 10:42 O2 Del Method Nasal Cannula wit h Capnography 06/06/22 10:42 O2 Flow Rate 2 06/06/22 10:42 BMI result Body Mass Index 40.3 On exam she is comfortable She is in no acute respiratory distress Epigastric dressing has some blood staining. Objective Data Active Medications Fentanyl (Fentanyl Citrate/Pf 100 Mcg/2 Ml Vial) 25 mcg IVPUSH Q5M PRN; Protoco l PRN Reason: Pain, Moderate (Pain Scale 4-6 Hydromorphone HCl (Hydromorphone Hcl 0.5 Mg/0.5 Ml Syringe) 0.25 mg IVPUSH Q5M PRN; Protocol PRN Reason: Pain, Severe (Pain Scale 7-10) Lactated Ringer's (Lr) 1,000 mls @ 150 mls/hr IVCONT .[id number] SAMANTA Last Admin: 06/06/22 06:35 Dose: 150 mls/hr Documented By: SAL Labs 06/06/22 10:35 06/06/22 10:35 Labs: Laboratory Results - last 24 hr 06/05/22 06/06/22 06/06/22 12:26 06:12 10:35 Anion Gap 13 Estim Creat Clear Calc 143.6 Estimated GFR > 60 Random Glucose 166 H Calcium 8.4 Urine Test NEGATIVE COVID-19 ([facility]) Negative COVID-19 Clin Com See Note Procedures Date of Service Date of Service: 06/06/22 Progress Note: A&P Assessment and plan (1) S/P laparoscopic sleeve gastrectomy: Status: Acute (2) Body mass index (BMI) of 40.1-44.9 in adult: Status: Acute Plan See orders Continue present management. Time Spent With Patient Time: Total time managing care of this patient today ____ minutes. Quality Stroke Does the patient have a stroke diagnosis?: No VTE Prior VTE?: No VTE Risk Level:: Surgical - moderate VTE Device Contraindication: N/A - Device Ordered VTE Drug Contraindication: Treatment Not Indicated
[2022-06-06] MEDS: Acetaminophen 1,000 MG/100 ML PIGGYBACK 16.7 MG IV ×2 (12:04→19:18)
[2022-06-06] MEDS: Lactated Ringers 1,000 ML 100 ML IVCONT ×2 (12:05→21:33)
[2022-06-06] MEDS: ondansetron HCL 4 MG/2 ML VIAL IVPUSH ×2 (12:19→19:18)
[2022-06-06] MEDS: ceFAZolin Sodium/Dextrose,Iso 2 GM/50 ML PIGGYBACK IV (13:41)
[2022-06-06] MEDS: Metoclopramide HCl 10 MG/2 ML VIAL IVPUSH (14:28)
[2022-06-06] MEDS: Famotidine/PF 20 MG/2 ML VIAL IVPUSH (19:18)
[2022-06-06] MEDS: 0.9 % Sodium Chloride Flush 3 ML SYRINGE IVFLUSH (19:28)
[2022-06-07] MEDS: Acetaminophen 1,000 MG/100 ML PIGGYBACK 16.7 MG IV ×2 (00:47→06:02)
[2022-06-07 03:02] VITALS: BP 127/72; PULSE 62; RESP 16; TEMP 37.1; O2SAT 98
[2022-06-07] MEDS: ondansetron HCL 4 MG/2 ML VIAL IVPUSH (03:20)
[2022-06-07] MEDS: Lactated Ringers 1,000 ML 100 ML IVCONT (06:04)
[2022-06-07 06:27] LABS: MANUAL DIFF FLAG NO
[2022-06-07 06:31] LABS: Basophils Percent Auto 0.3 % (0-2); Eosinophils Percent Auto 0.2 % (0-4); Hemoglobin 10.1 g/dl (12.0-16.0); Imm Gran Abs Auto 0.02 X10*3/uL (0.00-0.03); Imm Gran Pct Auto 0.2 % (0.0-0.4); Lymphocytes Absolute Auto 1.9 X10*3/uL (1.2-4.9); Lymphocytes Percent Auto 21.4 % (20-40); Mean Corpuscular HGB Conc 32.6 g/dl (31.0-35.0); Mean Corpuscular Hemoglobin 27.3 pg (27.0-33.0); Mean Corpuscular Volume 83.8 fL (80.0-98.0); Monocytes Absolute Auto 0.8 X10*3/uL (0.1-1.2); Monocytes Percent Auto 8.8 % (2-11); Neutrophils Percent Auto 69.1 % (45-73); Platelet Count 333 X10*3/uL (160-400); Red Cell Distribution Width 13.4 % (11.0-16.0); White Blood Count 8.7 X10*3/uL (4.8-10.8)
[2022-06-07 06:48] LABS: Anion Gap 13 (12-20); Blood Urea Nitrogen 7 mg/dL (9-16); Calcium 8.3 mg/dL (8.4-10.2); Carbon Dioxide 21 mmol/L (22-29); Chloride 108 mmol/L (96-108); Estimated Glomerular Filt Rate > 60; Glucose Random 91 mg/dL (60-115); Potassium 4.1 mmol/L (3.3-5.1); Sodium 138 mmol/L (135-145)
--- NOTE | 2022-06-07 06:56 | PM.PNGS ---
Subjective Subjective Date of Service: 06/07/22 Patient reports: feels better and tolerating liquids well Interval history: Some vomiting last night after getting up and moving around but that it is resolved. She has no odynophagia regurgitation, no hematemesis or chest pain. She is tolerating sips per protocol and hope being to be discharged later this morning. She reports good analgesia and requested that the epigastric port dressing site be changed since sick at soak and now has crusted dried blood. Physical Exam Vital Signs: Vital Signs: Last Vital Signs Temp 98.7 F 06/07/22 03:02 Pulse 62 06/07/22 03:02 Resp 16 06/07/22 03:02 BP 127/72 06/07/22 03:02 Pulse Ox 98 06/07/22 03:02 O2 Del Method Room Air 06/07/22 03:02 O2 Flow Rate 1.5 06/06/22 11:09 BMI result Body Mass Index 40.3 On exam she is nontoxic and anicteric She is in no acute respiratory distress Abdomen has appropriate incisional tenderness. The epigastric midline dressing and has crusted, dried blood. Will ask nursing or the PA to change before discharge Objective Data Active Medications Famotidine (Famotidine/Pf 20 Mg/2 Ml Vial) 20 mg IVPUSH BID [facility] Last Admin: 06/06/22 19:18 Dose: 20 mg Documented By: DON Fluoxetine HCl (Fluoxetine Hcl 20 Mg Capsule) 40 mg PO DAILY [facility] Hydromorphone HCl (Hydromorphone Hcl 0.5 Mg/0.5 Ml Syringe) 0.25 mg IVPUSH Q4H PRN; Protocol PRN Reason: Pain, Moderate (Pain Scale 4-6 Lactated Ringer's (Lr) 1,000 mls @ 100 mls/hr IVCONT .Q10H [facility] Last Admin: 06/07/22 06:04 Dose: 100 mls/hr Documented By: DON Acetaminophen (Ofirmev) 1,000 mg in 100 mls @ 16.7 mls/hr IV .Q6H [facility] Last Admin: 06/07/22 06:02 Dose: 16.7 mls/hr Documented By: DON Metoclopramide HCl (Metoclopramide Hcl 10 Mg/2 Ml Vial) 10 mg IVPUSH Q6H PRN PRN Reason: Nausea Last Admin: 06/06/22 14:28 Dose: 10 mg Documented By: YARELY Ondansetron HCl (Ondansetron Hcl 4 Mg/2 Ml Vial) 4 mg IVPUSH Q8H [facility] Last Admin: 06/07/22 03:20 Dose: 4 mg Documented By: DON Sodium Chloride (0.9 % Sodium Chloride Flush 3 Ml Syringe) 3 ml IVFLUSH QSHIFT [facility] Last Admin: 06/06/22 19:28 Dose: 3 ml Documented By: DON Labs 06/07/22 05:59 06/07/22 05:59 Labs: Laboratory Results - last 24 hr 06/06/22 06/07/22 06/07/22 10:35 05:59 05:59 MCV 83.8 MCH 27.3 MCHC 32.6 RDW 13.4 Plt Count 333 MPV 9.0 L Immature Gran % (Auto) 0.2 Neut % (Auto) 69.1 Lymph % (Auto) 21.4 [place] % (Auto) 8.8 Eos % (Auto) 0.2 Baso % (Auto) 0.3 Lymph # (Auto) 1.9 [place] # (Auto) 0.8 Eos # (Auto) 0.0 Baso # (Auto) 0.0 Abs Immat Gran (auto) 0.02 Absolute Neuts (auto) 6.0 Absolute Nucleated RBC 0.000 Nucleated RBC % (auto) 0.0 Anion Gap 13 13 Estim Creat Clear Calc 143.6 171.0 Estimated GFR > 60 > 60 Random Glucose 166 H 91 Calcium 8.4 8.3 L Procedures Date of Service Date of Service: 06/07/22 Progress Note: A&P Assessment and plan (1) S/P laparoscopic sleeve gastrectomy: Status: Acute (2) Shortness of breath: Status: Acute (3) Vitamin D deficiency: Status: Acute (4) BMI 39.0-39.9,adult: Status: Acute Plan I suspect the hemoglobin drift is dilutional since the patient has no significant, uncontrollable pain and or tachycardia. Plan for discharge home. The PA will see the patient in give dietary instruction later this morning. Instructions regarding diet and activity reviewed and apparently understood. Time Spent With Patient Time: Total time managing care of this patient today ____ minutes. Quality Stroke Does the patient have a stroke diagnosis?: No VTE Prior VTE?: No VTE Risk Level:: Surgical - moderate VTE Device Contraindication: N/A - Device Ordered VTE Drug Contraindication: Treatment Not Indicated
[2022-06-07] MEDS: FLUoxetine HCl 20 MG CAPSULE 40 MG PO (07:41)
[2022-06-07] MEDS: Famotidine/PF 20 MG/2 ML VIAL IVPUSH (07:42)
[2022-06-07 07:51] VITALS: BP 131/72; PULSE 63; RESP 18; TEMP 36.4; O2SAT 98
--- NOTE | 2022-06-07 09:02 | MHC.CM.PN ---
PATIENT LIVES WITH FAMILY SHE IS FULLY INDEPENDENT NO DME OR VNA SERVICES COVID VACCINATED. PLAN IS HOME TODAY - SELF CARE. MOTHER/HCP WILL PROVIDE TRANSPORT. PATIENT HAS HCP HOME IN PREP FOR THIS SURGERY
[2022-06-07 09:38] VITALS: O2SAT 99
--- NOTE | 2022-06-07 14:11 | HO.POSTANES ---
Post Anesthesia Evaluation Post Anesthesia Evaluation Vital Signs: Vital Signs Temp Pulse Resp BP Pulse Ox O2 Del Method 06/07/22 09:38 99 Room Air 06/07/22 07:51 97.6 F 63 18 131/72 98 Room Air 06/07/22 03:02 98.7 F 62 16 127/72 98 Room Air Anesthesia: General Endotracheal-GETA Mental Status: Awake Pain Control: Satisfactory Nausea/Vomiting: None Hydration: Adequate Anesthesia-Related Issues: No Anes. Related Issues
== END 2022-06-07 09:58 | disposition home or self-care (01) | DRG 403 ==
LOC: HO.SSSA 10:20 → HO.S3 10:27
PROVIDERS: Nurse Practitioner; Physician Assistant Surgical; Admitting Provider Surgery; PCP Internal Medicine; Visit Provider Surgery
PROC: 0DB64Z3 Excision of Stomach, Percutaneous Endoscopic Approach, Vertical (ICD-10-PCS; CPT 43845; principal; 2022-06-06 07:30)
DX: E66.01 Morbid (severe) obesity due to excess calories (principal); F32.A Depression, unspecified; M54.59 Other low back pain; Z68.41 Body mass index [BMI] 40.0-44.9, adult; Z20.822 Contact with and (suspected) exposure to COVID-19; Z79.899 Other long term (current) drug therapy
CPT/HCPCS: 36415; 80048; 81025; 85014; 85018; 85025; 86850; 86900; 86901; 87635; 88307; 88342; C9088; J0131; J0690; J1100; J1170; J2250; J2405; J2550; J2765; J3010

== ENCOUNTER → 2022-06-12 14:50 | Outpatient (BNVA) | payer OTHER, SELFPAY | PROVIDERS: PCP Internal Medicine; Visit Provider Physician Assistant Surgical | DX: E66.9 Obesity, unspecified (principal); Z98.84 Bariatric surgery status; Z68.39 Body mass index [BMI] 39.0-39.9, adult | CPT/HCPCS: 99212 ==

== ENCOUNTER → 2022-07-02 11:27 | Outpatient (BNVA) | payer OTHER, SELFPAY | PROVIDERS: PCP Internal Medicine; Visit Provider Physician Assistant Surgical | DX: E66.9 Obesity, unspecified (principal); Z98.84 Bariatric surgery status; Z68.37 Body mass index [BMI] 37.0-37.9, adult | CPT/HCPCS: 99212 ==

== ENCOUNTER → 2022-08-08 14:00 | Outpatient (BNVA) | payer OTHER, SELFPAY | PROVIDERS: PCP Internal Medicine; Visit Provider Physician Assistant Surgical ==

== ENCOUNTER 2022-09-25 10:56 | Outpatient (AMB) | payer OTHER, SELFPAY ==
--- NOTE | 2022-09-25 11:00 | A.OFFVIS_ITS ---
Intake VS Expanded 09/25/22 11:01 Height 5 ft 8 in Weight 224 lb 3.2 oz BMI 34.1 BP 116/67 Blood Pressure Location Rt brachial Blood Pressure Position Sitting Pulse 76 Pulse Source Pulse Oximeter Temp 97.6 F Temperature Source Temporal Artery Scan Pulse Oximetry 95 Oxygen Delivery Method Room Air Body Fat 94.4 Body Fat Percentage 42.1 Free Fat Mass 129.6 Muscle Mass 123.0 Visceral Mass 8.0 Water Mass 93.2 BMR 1,845 Intake Visit Reasons: (OV) PO LSG 06/06/22 Allergies No Known Allergies Allergy (Verified 09/25/22 11:02) Medication List - Last Reconciled 09/25/22 by AMADEO Bond buspirone 5 mg PO DAILY ferrous sulfate 325 mg PO DAILY sertraline 50 mg PO DAILY HPI HPI Comments History of Present Illness Details This?is a?27?yo female who is s/p LSG 06/06/2022. Presents for 4 month post op visit. Weight at last visit on 08/08/2022 was 235 pounds with a BMI of 35.7, weight today is 224.2 pounds, representing a 10.8 pound weight loss with a BMI today of 34.1.? No complaints of nausea, emesis, abdominal pain or reflux, or constipation. Present meal plan includes: 8-10 Celebrate 2 scoops in 8oz UAM 11-1 Celebrate 2 scoops in 8oz UAM 2-4 Premier 2 scoops in 8oz UAM OR protein water (Pure Protein or Isopure)- usually skips this 5-8 FitCrunch bar- doesn't like this much in evenings will have tuna Exercise routine includes: treadmill or elliptical 2-3x/week, 60 min plus outdoor walking PFSH Medical History (Updated 06/12/22 @ 15:35 by AMADEO Bond) Depression Low back pain Morbid obesity due to excess calories Surgical History Hx of section Family History Father No problems noted. Mother No problems noted. Son No problems noted. Son No problems noted. Maternal Grandfather Brain cancer Maternal Aunt Breast cancer Son Hypertrophic cardiomyopathy Sister No problems noted. Sister No problems noted. Sister No problems noted. Social History Household Members: Family Are you a primary care information associate to a significant other at home: Yes (3 children, youngest 18 months) Do you presently have visiting nurse or other home services: No 75 years or older and lives alone: No Alcohol intake: former Patient Tobacco Use Status: Never used Tobacco Current occupational status: employed Physical Exam Vital Signs: Last Vital Signs Temp 97.6 F 09/25/22 11:01 Pulse 76 09/25/22 11:01 BP 116/67 09/25/22 11:01 Pulse Ox 95 09/25/22 11:01 Oxygen Delivery Method Room Air 09/25/22 11:01 BMI result Body Mass Index 34.1 Assessment & Plan Assessment & Plan (1) Obesity: Code(s): E66.9 - Obesity, unspecified (2) S/P laparoscopic sleeve gastrectomy: Code(s): Z98.84 - Bariatric surgery status Plan Meal plan adjusted as pt is still having some difficulty eating frequently enough to get adequate protein. 2 Celebrate shakes per day with 2 scoops each in 8oz Fairlife milk 2 small meals of 1oz protein PPI and carafate courses complete. RTC 1 month. Meal plan texted to pt and encouraged her to reach out between appts with any questions. Patient is obese and is not considered stable at this time. I spent a total of 30 minutes reviewing/updating records, examining the patient and counseling the patient on weight management as detailed above. Coding Level of Care Code Est Pt Level 4 (87336) Diagnoses Obesity E66.9 S/P laparoscopic sleeve gastrectomy Z98.84
[2022-09-25 11:01] VITALS: BP 116/67; PULSE 76; TEMP 36.4; O2SAT 95; BMI 34.1
== END 2022-09-25 11:30 | disposition home or self-care (01) ==
PROVIDERS: PCP Internal Medicine; Visit Provider Physician Assistant Surgical
DX: E66.9 Obesity, unspecified (principal); Z68.34 Body mass index [BMI] 34.0-34.9, adult; Z90.3 Acquired absence of stomach [part of]; Z98.84 Bariatric surgery status
CPT/HCPCS: 99214

== ENCOUNTER → 2022-09-25 10:56 | Outpatient (BNVA) | payer OTHER, SELFPAY | PROVIDERS: PCP Internal Medicine; Visit Provider Physician Assistant Surgical | DX: E66.9 Obesity, unspecified (principal); Z68.34 Body mass index [BMI] 34.0-34.9, adult; Z98.84 Bariatric surgery status | CPT/HCPCS: 99212 ==

== ENCOUNTER 2023-01-29 12:08 | Outpatient (AMB) | payer OTHER, SELFPAY ==
--- NOTE | 2023-01-29 12:23 | MHC.OFFVISWM ---
Intake VS Expanded 01/29/23 12:34 Blood Pressure Location Rt brachial Blood Pressure Position Sitting Pulse 86 Pulse Source Pulse Oximeter Temp 97.2 F Temperature Source Temporal Artery Scan Pulse Oximetry 99 Oxygen Delivery Method Room Air Height 5 ft 8 in Weight 205 lb 6.4 oz BMI 31.2 Body Fat % 39.2 Body Fat Mass 80.4 Fat Free Mass 124.8 Visceral Fat Rating 6.0 Body Water % 43.7 Body Water Mass 89.8 Muscle Mass/Score 118.4 Basal Metabolic Rate/Score 1,756 Intake Visit Reasons: (OV) PO LSG 06/06/22 Allergies No Known Allergies Allergy (Verified 01/29/23 12:32) Medication List - Last Reconciled 01/29/23 by AMADEO Bond buspirone 5 mg PO DAILY ferrous sulfate 325 mg PO DAILY sertraline 50 mg PO DAILY HPI HPI Comments History of Present Illness Details This?is a?28?yo female who is s/p LSG 06/06/2022. Presents for 8 month post op visit. Weight at last visit on 09/25/2022 was 224.2 pounds with a BMI of 34.1, weight today is 205.4 pounds, representing an 18.8 pound weight loss with a BMI today of 31.2.? No complaints of nausea, emesis, abdominal pain or reflux, or constipation. Pt reports her hydration is on the lower side. Feels like she has been stuck at 205lbs for 2 months. Present meal plan includes: random stuff here and there - inconsistent with meals tried a lewis MVI but did not like it Exercise routine includes: hasn't been able to go to gym, but does have a bike in the basement Did the patient ever have any of these conditions and are they resolved or still being treated? GERD: never RAISA:? never DM:? never HTN:? never Hyperlipidemia:?never Post op complications:? none PFSH Medical History (Updated 06/12/22 @ 15:35 by AMADEO Bond) Low back pain Depression Morbid obesity due to excess calories Surgical History S/P laparoscopic sleeve gastrectomy Hx of section Family History Father No problems noted. Mother No problems noted. Son No problems noted. Son No problems noted. Maternal Grandfather Brain cancer Maternal Aunt Breast cancer Son Hypertrophic cardiomyopathy Sister No problems noted. Sister No problems noted. Sister No problems noted. Household Members: Family Are you a primary primary care coordinator to a significant other at home: Yes (3 children, youngest 18 months) Do you presently have visiting nurse or other home services: No 75 years or older and lives alone: No Alcohol intake: former Patient Tobacco Use Status: Never used Tobacco Current occupational status: employed Physical Exam Const General: cooperative, comfortable and no acute distress Orientation/consciousness: patient oriented x3 GI Other: soft, nontender, nondistended, incisions well healed, no hernia, no masses Neuro General: patient oriented x3 Assessment & Plan Assessment & Plan (1) S/P laparoscopic sleeve gastrectomy: Code(s): Z98.84 - Bariatric surgery status (2) Obesity: Code(s): E66.9 - Obesity, unspecified Plan New meal plan with adequate protein: 2 Fairlife shakes per day One Icelandic yogurt One meal with 4-5 forks protein and up to 5 forks salad or veg if she wants but prioritize protein intake Encouraged resuming exercise- start with 15-20 min several times per week on home bike, increase as able. Labs ordered. RTC 6 weeks to monitor progress. Patient is obese and is not considered stable at this time. I spent a total of 30 minutes reviewing/updating records, examining the patient and counseling the patient on weight management as detailed above. Orders: Orders Complete Blood Count Auto Diff Today Z98.84 - Bariatric surgery status Zinc Today Z98.84 - Bariatric surgery status Comprehensive Met. Panel Today Z98.84 - Bariatric surgery status Vitamin A Today Z98.84 - Bariatric surgery status TSH reflex Free T4 Today Z98.84 - Bariatric surgery status Hemoglobin A1c Today Z98.84 - Bariatric surgery status Insulin Today Z98.84 - Bariatric surgery status Lipid Panel Today Z98.84 - Bariatric surgery status IRON PROFILE Today Z98.84 - Bariatric surgery status Vitamin B12 and Folate Today Z98.84 - Bariatric surgery status Vitamin B1 Today Z98.84 - Bariatric surgery status C Reactive Protein Today Z98.84 - Bariatric surgery status Ferritin Today Z98.84 - Bariatric surgery status PTHI Today Z98.84 - Bariatric surgery status Vitamin D 25-OH Total Today Z98.84 - Bariatric surgery status Coding Level of Care Code Est Pt Level 4 (28377) Diagnoses S/P laparoscopic sleeve gastrectomy Z98.84 Obesity E66.9
[2023-01-29 12:34] VITALS: PULSE 86; TEMP 36.2; O2SAT 99; BMI 31.2
== END 2023-01-29 12:57 | disposition home or self-care (01) ==
PROVIDERS: PCP Internal Medicine; Visit Provider Physician Assistant Surgical
DX: E66.9 Obesity, unspecified (principal); Z68.31 Body mass index [BMI] 31.0-31.9, adult; Z90.3 Acquired absence of stomach [part of]; Z98.84 Bariatric surgery status
CPT/HCPCS: 99214

== ENCOUNTER → 2023-01-29 12:08 | Outpatient (BNVA) | payer OTHER, SELFPAY | PROVIDERS: PCP Internal Medicine; Visit Provider Physician Assistant Surgical | DX: E66.09 Other obesity due to excess calories (principal); Z68.31 Body mass index [BMI] 31.0-31.9, adult; Z90.3 Acquired absence of stomach [part of] | CPT/HCPCS: 99212 ==

== ENCOUNTER 2023-02-11 09:30 | Outpatient (REF) | payer OTHER, SELFPAY ==
[2023-02-11 09:46] LABS: MANUAL DIFF FLAG NO
[2023-02-11 10:27] LABS: Estimated Average Glucose 103 mg/dL; Hemoglobin A1C 86.6627 umol/L; Hemoglobin A1c % 5.2 % (<6.0)
[2023-02-11 10:34] LABS: Basophils Absolute Auto 0.1 X10*3/uL (0.0-0.2); Eosinophils Absolute Auto 0.2 X10*3/uL (0.0-0.4); Eosinophils Percent Auto 3.1 % (0-4); Hematocrit 33.6 % (37.0-47.0); Hemoglobin 10.1 g/dl (12.0-16.0); Imm Gran Abs Auto 0.01 X10*3/uL (0.00-0.03); Imm Gran Pct Auto 0.2 % (0.0-0.4); Lymphocytes Absolute Auto 1.8 X10*3/uL (1.2-4.9); Lymphocytes Percent Auto 37.2 % (20-40); Mean Corpuscular HGB Conc 30.1 g/dl (31.0-35.0); Mean Corpuscular Hemoglobin 24.2 pg (27.0-33.0); Mean Corpuscular Volume 80.4 fL (80.0-98.0); Mean Platelet Volume 8.9 fL (9.4-12.3); Monocytes Absolute Auto 0.3 X10*3/uL (0.1-1.2); Monocytes Percent Auto 6.2 % (2-11); Neutrophils Absolute Auto 2.5 x10*3/uL (2.0-8.3); Neutrophils Percent Auto 52.3 % (45-73); Platelet Count 491 X10*3/uL (160-400); Red Blood Count 4.18 X10*6/uL (4.20-5.50); White Blood Count 4.9 X10*3/uL (4.8-10.8)
[2023-02-11 11:02] LABS: Alanine Aminotransferase 9 U/L (0-31); Albumin Level 4.1 g/dL (3.5-5.0); Alkaline Phosphatase 71 U/L (39-117); Anion Gap 12 (12-20); Aspartate Amino Transferase 14 U/L (5-31); Bilirubin Total 0.4 mg/dL (0.0-1.0); Blood Urea Nitrogen 15 mg/dL (9-16); C Reactive Protein < 0.04 mg/dL (< or = 0.50); Carbon Dioxide 25 mmol/L (22-29); Chloride 109 mmol/L (96-108); Cholesterol 173 mg/dL (<200); Estimated Glomerular Filt Rate > 60; Glucose Random 88 mg/dL (60-115); HDL Cholesterol 53 mg/dL (>40); Iron 28 mcg/dL (30-160); LDL Cholesterol Calculated 101 mg/dL (<100); Percent Iron Saturation 8 % (15-50); Potassium 3.6 mmol/L (3.3-5.1); Sodium 142 mmol/L (135-145); Total Iron Binding Capacity 356 mcg/dL (228-428); Total Protein 7.5 g/dL (6.5-8.0); Triglycerides 95 mg/dL (<150); Unsaturated Iron Binding 328 ug/dL
[2023-02-11 11:25] LABS: Ferritin 8 ng/mL (10-122); TSH reflex Free T4 1.15 uIU/mL (0.32-4.0); Vitamin D 25-OH Total 25.2 ng/mL (>30)
[2023-02-11 11:31] LABS: Folate 5.7 ng/mL (> or = 4.0); Vitamin B12 927 pg/mL (200-900)
[2023-02-11 11:41] LABS: Insulin 6 uU/mL (2-29)
[2023-02-13 16:28] LABS: Zinc 75 mcg/dL (60-130)
[2023-02-15 02:34] LABS: Vitamin A 39 mcg/dL (38-98)
[2023-02-16 08:38] LABS: Vitamin B1 12 nmol/L (8-30)
== END 2023-02-11 09:31 | disposition home or self-care (01) ==
LOC: HO.LAB 09:30
PROVIDERS: Visit Provider Physician Assistant Surgical
DX: Z98.84 Bariatric surgery status (principal)
CPT/HCPCS: 36415; 80053; 80061; 82306; 82607; 82728; 82746; 83036; 83525; 83540; 84425; 84443; 84590; 84630; 85025; 86140

== ENCOUNTER 2023-03-21 10:42 | Outpatient (AMB) | payer OTHER, SELFPAY ==
--- NOTE | 2023-03-21 10:33 | MHC.OFFVISWM ---
Intake VS Expanded 03/21/23 10:35 Height 5 ft 8 in Weight 200 lb BMI 30.4 Intake Visit Reasons: (VIDEO) PO LSG 06/06/22 Allergies No Known Allergies Allergy (Verified 01/29/23 12:32) Medication List - Last Reconciled 03/21/23 by AMADEO Bond buspirone 5 mg PO DAILY cholecalciferol (vitamin D3) 50 mcg PO DAILY ferrous sulfate 325 mg PO DAILY sertraline 50 mg PO DAILY HPI HPI Comments History of Present Illness Details This?is a?28?yo female who is s/p LSG 06/06/2022. Presents for 10 month post op visit. Weight at last visit on 01/29/2023 was 205.4 pounds with a BMI of 31.2, weight today is 200 pounds, representing a 5.4 pound weight loss with a BMI today of 30.4.? No complaints of nausea, emesis, abdominal pain or reflux, or constipation. Present meal plan includes: 2 Fairlife shakes per day One [place]an yogurt One meal with 4-5 forks protein and up to 5 forks salad or veg if she wants but prioritize protein intake I do kind of fall off here and there but tries to be consistent Exercise: at last visit encouraged resuming exercise- start with 15-20 min several times per week on home bike, increase as able [facility] Medical History (Updated 06/12/22 @ 15:35 by AMADEO Bond) Low back pain Depression Morbid obesity due to excess calories Surgical History S/P laparoscopic sleeve gastrectomy Hx of section Family History Father No problems noted. Mother No problems noted. Son No problems noted. Son No problems noted. Maternal Grandfather Brain cancer Maternal Aunt Breast cancer Son Hypertrophic cardiomyopathy Sister No problems noted. Sister No problems noted. Sister No problems noted. Social History Household Members: Family Are you a primary healthcare economics manager to a significant other at home: Yes (3 children, youngest 18 months) Do you presently have visiting nurse or other home services: No Alcohol intake: former Patient Tobacco Use Status: Never used Tobacco Current occupational status: employed Assessment & Plan Assessment & Plan (1) S/P laparoscopic sleeve gastrectomy: Code(s): Z98.84 - Bariatric surgery status (2) Obesity: Code(s): E66.9 - Obesity, unspecified Plan Again encouraged pt to increase exercise and start small with 10 minutes on bike when she has time. Due for labs again in August. She is happy with her meal plan for now but understands weight loss would increase if she could add in exercise. RTC 2 months for annual visit; encouraged pt to text me between appts with any questions. Patient is obese and is not considered stable at this time. I spent a total of 30 minutes reviewing/updating records, examining the patient and counseling the patient on weight management as detailed above. Telehealth Telehealth Location of provider rendering services: practice address Location of patient: address on file Patient Identification confirmed using: Name, : Yes Telehealth method: voice only Patient verbally consented to treatment: Yes Patient verbally consented to billing insurance company: Yes Patient informed of any privacy concerns related to visit: Yes Minutes spent on Phone/Video with Pt.: 10 Coding Level of Care Code Tele Est Pt Level 4 (80922) Diagnoses S/P laparoscopic sleeve gastrectomy Z98.84 Obesity E66.9
[2023-03-21 10:35] VITALS: BMI 30.4
== END 2023-03-21 10:43 | disposition home or self-care (01) ==
LOC: HO.HBS 10:42
PROVIDERS: Visit Provider Physician Assistant Surgical
DX: E66.9 Obesity, unspecified (principal); Z68.30 Body mass index [BMI] 30.0-30.9, adult; Z90.3 Acquired absence of stomach [part of]; Z98.84 Bariatric surgery status
CPT/HCPCS: 99214

== ENCOUNTER → 2023-03-21 10:42 | Outpatient (BNVA) | payer OTHER, SELFPAY | PROVIDERS: Visit Provider Physician Assistant Surgical ==

== ENCOUNTER 2023-09-25 09:44 | Outpatient (AMB) | payer OTHER, SELFPAY ==
--- NOTE | 2023-09-25 09:52 | A.OFFVIS_ITS ---
VS Expanded 09/25/23 09:58 BP 126/58 L Blood Pressure Location Rt brachial Blood Pressure Position Sitting Pulse 89 Pulse Source Pulse Oximeter Temp 97.0 F Temperature Source Temporal Artery Scan Pulse Oximetry 98 Oxygen Delivery Method Room Air Height 5 ft 8 in Weight 195 lb 9.6 oz BMI 29.7 Body Fat % 37.1 Body Fat Mass 72.6 Fat Free Mass 123.0 Visceral Fat Rating 6.0 Body Water % 45.2 Body Water Mass 88.4 Muscle Mass/Score 116.8 Basal Metabolic Rate/Score 1,720 Intake Visit Reasons: OV PO LSG 06/06/22 Allergies No Known Allergies Allergy (Verified 09/25/23 10:00) Medication List - Last Reconciled 09/25/23 by AMADEO Bond buspirone 5 mg PO DAILY cholecalciferol (vitamin D3) 50 mcg PO DAILY ferrous sulfate 325 mg PO DAILY sertraline 50 mg PO DAILY HPI Comments Details: This?is a?28?yo female who is s/p LSG 06/06/2022. Presents for 16 month post op visit. Weight at last visit on 03/21/2023 was 200 pounds with a BMI of 30.4, weight today is 195.6 pounds, representing a 4.4 pound weight loss with a BMI today of 29.4.? No complaints of nausea, emesis, abdominal pain or reflux, or constipation. Present meal plan includes: 2 Fairlife shakes per day One Vietnamese yogurt One meal with 4-5 forks protein and up to 5 forks salad or veg if she wants but prioritize protein intake Exercise: yesterday got a walking pad for use at home [facility] Medical History (Updated 09/25/23 @ 10:09 by AMADEO Bond) Low back pain Depression Morbid obesity due to excess calories Surgical History S/P laparoscopic sleeve gastrectomy Hx of section Family History Father No problems noted. Mother No problems noted. Son No problems noted. Son No problems noted. Maternal Grandfather Brain cancer Maternal Aunt Breast cancer Son Hypertrophic cardiomyopathy Sister No problems noted. Sister No problems noted. Sister No problems noted. Social History Household Members: Family Are you a primary care program resident to a significant other at home: Yes (3 children, youngest 18 months) Do you presently have visiting nurse or other home services: No 75 years or older and lives alone: No Alcohol intake: former Patient Tobacco Use Status: Never used Tobacco Current occupational status: employed Assessment & Plan Assessment & Plan (1) Overweight: Code(s): E66.3 - Overweight Category: Medical (2) S/P laparoscopic sleeve gastrectomy: Code(s): Z98.84 - Bariatric surgery status Category: Medical Plan Pt knows she needs to improve consistency on plan. I offered to adjust for her to make it easier for her to follow but she wants to continue with current shakes. Will start to increase exercise and is working on getting additional exercise equipment. Labs ordered. RTC 3 months. I spent a total of 30 minutes reviewing/updating records, examining the patient and counseling the patient on weight management as detailed above. Orders: Orders Complete Blood Count Auto Diff Today E66.3 - Overweight, Z98.84 - Bariatric surgery status Lipid Panel Today E66.3 - Overweight, Z98.84 - Bariatric surgery status IRON PROFILE Today E66.3 - Overweight, Z98.84 - Bariatric surgery status Vitamin B12 and Folate Today E66.3 - Overweight, Z98.84 - Bariatric surgery status Insulin Today E66.3 - Overweight, Z98.84 - Bariatric surgery status Hemoglobin A1c Today E66.3 - Overweight, Z98.84 - Bariatric surgery status Comprehensive Met. Panel Today E66.3 - Overweight, Z98.84 - Bariatric surgery status Zinc Today E66.3 - Overweight, Z98.84 - Bariatric surgery status C Reactive Protein Today E66.3 - Overweight, Z98.84 - Bariatric surgery status Vitamin B1 Today E66.3 - Overweight, Z98.84 - Bariatric surgery status Vitamin A Today E66.3 - Overweight, Z98.84 - Bariatric surgery status TSH reflex Free T4 Today E66.3 - Overweight, Z98.84 - Bariatric surgery status Ferritin Today E66.3 - Overweight, Z98.84 - Bariatric surgery status Vitamin D 25-OH Total Today E66.3 - Overweight, Z98.84 - Bariatric surgery st at
[2023-09-25 09:58] VITALS: BP 126/58; PULSE 89; TEMP 36.1; O2SAT 98; BMI 29.7
== END 2023-09-25 10:13 | disposition home or self-care (01) ==
PROVIDERS: Visit Provider Physician Assistant Surgical
DX: E66.3 Overweight (principal); Z68.29 Body mass index [BMI] 29.0-29.9, adult; Z90.3 Acquired absence of stomach [part of]; Z98.84 Bariatric surgery status
CPT/HCPCS: 99214

== ENCOUNTER → 2023-09-25 09:44 | Outpatient (BNVA) | payer OTHER, SELFPAY | PROVIDERS: Visit Provider Physician Assistant Surgical | DX: E66.3 Overweight (principal); Z71.3 Dietary counseling and surveillance; Z98.84 Bariatric surgery status; Z68.29 Body mass index [BMI] 29.0-29.9, adult | CPT/HCPCS: 99212 ==

== ENCOUNTER 2023-10-24 09:12 | Outpatient (REF) | payer OTHER, SELFPAY ==
[2023-10-24 09:26] LABS: MANUAL DIFF FLAG NO
[2023-10-24 09:52] LABS: Basophils Absolute Auto 0.1 X10*3/uL (0.0-0.2); Basophils Percent Auto 1.3 % (0-2); Eosinophils Absolute Auto 0.1 X10*3/uL (0.0-0.4); Eosinophils Percent Auto 2.6 % (0-4); Hematocrit 30.4 % (37.0-47.0); Hemoglobin 8.9 g/dl (12.0-16.0); Imm Gran Abs Auto 0.01 X10*3/uL (0.00-0.03); Imm Gran Pct Auto 0.3 % (0.0-0.4); Lymphocytes Absolute Auto 1.4 X10*3/uL (1.2-4.9); Mean Corpuscular HGB Conc 29.3 g/dl (31.0-35.0); Mean Corpuscular Hemoglobin 20.9 pg (27.0-33.0); Mean Corpuscular Volume 71.5 fL (80.0-98.0); Mean Platelet Volume 8.5 fL (9.4-12.3); Monocytes Absolute Auto 0.2 X10*3/uL (0.1-1.2); Neutrophils Percent Auto 52.8 % (45-73); Platelet Count 501 X10*3/uL (160-400); Red Blood Count 4.25 X10*6/uL (4.20-5.50); Red Cell Distribution Width 16.4 % (11.0-16.0); White Blood Count 3.9 X10*3/uL (4.8-10.8)
[2023-10-24 09:58] LABS: Estimated Average Glucose 97 mg/dL
[2023-10-24 10:25] LABS: Parathyroid Hormone Intact 60.7 pg/mL (8.7-77.1)
[2023-10-24 10:31] LABS: Alanine Aminotransferase 10 U/L (0-31); Albumin Level 4.1 g/dL (3.5-5.0); Alkaline Phosphatase 52 U/L (39-117); Anion Gap 10 (12-20); Aspartate Amino Transferase 14 U/L (5-31); Bilirubin Total 0.4 mg/dL (0.0-1.0); Blood Urea Nitrogen 12 mg/dL (9-16); C Reactive Protein < 0.04 mg/dL (< or = 0.50); Calcium 8.5 mg/dL (8.4-10.2); Carbon Dioxide 26 mmol/L (22-29); Chloride 110 mmol/L (96-108); Cholesterol 157 mg/dL (<200); Estimated Glomerular Filt Rate > 60; Glucose Random 87 mg/dL (60-115); HDL Cholesterol 56 mg/dL (>40); Iron 19 mcg/dL (30-160); LDL Cholesterol Calculated 88 mg/dL (<100); Percent Iron Saturation 5 % (15-50); Potassium 3.9 mmol/L (3.3-5.1); Sodium 142 mmol/L (135-145); Total Iron Binding Capacity 374 mcg/dL (228-428); Total Protein 7.1 g/dL (6.5-8.0); Triglycerides 65 mg/dL (<150); Unsaturated Iron Binding 355 ug/dL
[2023-10-24 10:54] LABS: Ferritin 5 ng/mL (10-122); Folate 9.6 ng/mL (> or = 4.0); TSH reflex Free T4 0.88 uIU/mL (0.32-4.0); Vitamin B12 983 pg/mL (200-900); Vitamin D 25-OH Total 32.9 ng/mL (>30)
[2023-10-24 11:18] LABS: Insulin 3 uU/mL (2-29)
[2023-10-29 01:02] LABS: Zinc 69 mcg/dL (60-130)
[2023-10-30 18:28] LABS: Vitamin A 38 mcg/dL (38-98)
[2023-10-31 11:18] LABS: Vitamin B1 13 nmol/L (8-30)
== END 2023-10-24 09:13 | disposition home or self-care (01) ==
LOC: HO.LAB 09:12
PROVIDERS: PCP Internal Medicine; Visit Provider Physician Assistant Surgical
DX: Z98.84 Bariatric surgery status (principal); E66.3 Overweight
CPT/HCPCS: 36415; 80053; 80061; 82306; 82607; 82728; 82746; 83036; 83525; 83540; 83970; 84425; 84443; 84590; 84630; 85025; 86140

== ENCOUNTER 2023-12-16 11:44 | Outpatient (AMB) | payer OTHER, SELFPAY ==
--- NOTE | 2023-12-16 11:42 | MHC.OFFVISWM ---
VS Expanded 12/16/23 11:45 Height 5 ft 8 in Intake Visit Reasons: TV PO LSG 06/06/22 Allergies No Known Allergies Allergy (Verified 09/25/23 10:00) Medication List - Last Reconciled 12/16/23 by AMADEO Bond buspirone 5 mg PO DAILY cholecalciferol (vitamin D3) 50 mcg PO DAILY ferrous sulfate 325 mg PO DAILY sertraline 50 mg PO DAILY HPI Comments Details: This?is a?28?yo female who is s/p LSG 06/06/2022. Presents for 18 month post op visit. Pt is unsure what she weighs today, thinks it is relatively stable from previous. Pt is 7.5 weeks . Taking an iron pill that she is tolerating. Taking a MVI. Has first OB visit this Saturday. Present meal plan includes: not taking much in due to ongoing nausea hydration has been difficult apple slices or oranges, snacks on random stuff still has restriction from sleeve PFSH Medical History (Updated 09/25/23 @ 10:09 by AMADEO Bond) Low back pain Depression Morbid obesity due to excess calories Surgical History (Reviewed 09/25/23 @ 10:00 by Jordyn Lemos [facility]) S/P laparoscopic sleeve gastrectomy Hx of section Family History (Reviewed 09/25/23 @ 10:00 by Jordyn Lemos [facility]) Father No problems noted. Mother No problems noted. Son No problems noted. Son No problems noted. Maternal Grandfather Brain cancer Maternal Aunt Breast cancer Son Hypertrophic cardiomyopathy Sister No problems noted. Sister No problems noted. Sister No problems noted. Social History (Reviewed 09/25/23 @ 10:00 by Jordyn Lemos [facility]) Household Members: Family Are you a primary health care legal assistant to a significant other at home: Yes (3 children, youngest 18 months) Do you presently have visiting nurse or other home services: No Alcohol intake: former Patient Tobacco Use Status: Never used Tobacco Current occupational status: employed Telehealth Telehealth Telehealth Platform: Telephone Location of provider rendering services: practice address Location of patient: address on file Patient Identification confirmed using: Name, : Yes Telehealth method: voice only Patient verbally consented to treatment: Yes Patient verbally consented to billing insurance company: Yes Patient informed of any privacy concerns related to visit: Yes Minutes spent on Phone/Video with Pt.: 18 Assessment & Plan Assessment & Plan (1) Overweight: Code(s): E66.3 - Overweight Category: Medical (2) S/P laparoscopic sleeve gastrectomy: Code(s): Z98.84 - Bariatric surgery status Category: Surgical Plan Discussed getting adequate protein, 1g/kg/day as well as adding in some healthy fats and carbs to support healthy growth. Pt has a lot of nausea/food aversions right now, discussed protein shakes and protein hussein as an easier way to meet protein goal. Continue MVI and can recheck labs after next visit to ensure adequate vitamin supplementation. RTC 3 months. I spent a total of 30 minutes reviewing/updating records, examining the patient and counseling the patient on weight management as detailed above.
== END 2023-12-16 11:58 | disposition home or self-care (01) ==
LOC: HO.HBS 11:44
PROVIDERS: PCP Internal Medicine; Visit Provider Physician Assistant Surgical
DX: E66.3 Overweight (principal); Z68.29 Body mass index [BMI] 29.0-29.9, adult; Z90.3 Acquired absence of stomach [part of]; Z98.84 Bariatric surgery status
CPT/HCPCS: 99214

== ENCOUNTER → 2023-12-16 11:44 | Outpatient (BNVA) | payer OTHER, SELFPAY | PROVIDERS: PCP Internal Medicine; Visit Provider Physician Assistant Surgical | DX: Z98.84 Bariatric surgery status (principal); E66.3 Overweight ==

== ENCOUNTER 2025-01-21 10:55 | Outpatient (AMB) | payer OTHER, SELFPAY ==
--- NOTE | 2025-01-21 11:13 | A.OFFVIS_ITS ---
VS Expanded 01/21/25 11:45 BP 120/69 Blood Pressure Location Rt brachial Blood Pressure Position Sitting Pulse 88 Pulse Source Pulse Oximeter Temp 96.8 F Temperature Source Temporal Artery Scan Pulse Oximetry 95 Oxygen Delivery Method Room Air Height 5 ft 8 in Weight 227 lb 12.8 oz BMI 34.6 Body Fat % 44.3 Body Fat Mass 101.0 Fat Free Mass 126.8 Visceral Fat Rating 9.0 Body Water % 40.0 Body Water Mass 91.0 Muscle Mass/Score 120.4 Basal Metabolic Rate/Score 1,809 Intake Visit Reasons: OV PO LSG 06/06/22 Allergies No Known Allergies Allergy (Verified 09/25/23 10:00) Medication List - Last Reconciled 01/21/25 by AMADEO Bond buspirone 5 mg PO DAILY ferrous sulfate 325 mg PO DAILY phentermine 15 mg PO DAILY sertraline 50 mg PO DAILY HPI Comments Details: This?is a?30?yo F who is s/p LSG 06/06/2022. Weight gain of 32.2lbs since last OV in September 2023. No complaints of nausea, emesis, abdominal pain or reflux, or constipation. Present meal plan includes: nothing currently- hard to stick to not currently Exercise routine includes: has a walking pad at home, tries to use this [facility] Medical History (Updated 09/25/23 @ 10:09 by AMADEO Bond) Low back pain Depression Morbid obesity due to excess calories Surgical History S/P laparoscopic sleeve gastrectomy Hx of section Family History Father No problems noted. Mother No problems noted. Son No problems noted. Son No problems noted. Maternal Grandfather Brain cancer Maternal Aunt Breast cancer Son Hypertrophic cardiomyopathy Sister No problems noted. Sister No problems noted. Sister No problems noted. Social History Household Members: Family Are you a primary customer care representative to a significant other at home: Yes (3 children, youngest 18 months) Do you presently have visiting nurse or other home services: No 75 years or older and lives alone: No Alcohol intake: former Patient Tobacco Use Status: Never used Tobacco Current occupational status: employed Physical Exam Vital Signs: Last Vital Signs Temp 96.8 F 01/21/25 11:45 Pulse 88 01/21/25 11:45 BP 120/69 01/21/25 11:45 Pulse Ox 95 01/21/25 11:45 Oxygen Delivery Method Room Air 01/21/25 11:45 BMI result Body Mass Index 34.6 Assessment & Plan Assessment & Plan (1) Obesity: Code(s): E66.9 - Obesity, unspecified Category: Medical (2) S/P laparoscopic sleeve gastrectomy: Code(s): Z98.84 - Bariatric surgery status Category: Medical Plan Pt is interested in starting GLP1, however her insurance requires a 3 month trial of phentermine. Pt is agreeable to this. She will monitor BP daily and text me readings. Also instructed her to follow a meal plan from [employer]. Labs ordered. RTC 3 months. If no progress with weight loss can consider GLP1 at next visit. Orders: Orders Vitamin D 25-OH Total Today Z.84 - Bariatric surgery status TSH reflex Free T4 Today Z98.84 - Bariatric surgery status C Reactive Protein Today Z98.84 - Bariatric surgery status Vitamin B1 Today Z98.84 - Bariatric surgery status Vitamin A Today Z98.84 - Bariatric surgery status Complete Blood Count Auto Diff Today Z98.84 - Bariatric surgery status Lipid Panel Today Z98.84 - Bariatric surgery status Hemoglobin A1c Today Z98.84 - Bariatric surgery status Ferritin Today Z98.84 - Bariatric surgery status Zinc Today Z98.84 - Bariatric surgery status Vitamin B12 and Folate Today Z98.84 - Bariatric surgery status Comprehensive Met. Panel Today Z.84 - Bariatric surgery status Insulin Today Z98.84 - Bariatric surgery status IRON PROFILE Today Z98.84 - Bariatric surgery status Medications: New phentermine must administer 2 hours after breakfast 15 mg PO DAILY 30 caps 0RF
[2025-01-21 11:45] VITALS: BP 120/69; PULSE 88; TEMP 36; O2SAT 95; BMI 34.6
--- OUTSIDE RECORDS SUMMARY | 2025-01-21 13:37 | XMS_ITS | Clinical Summary ---
Author Organization [facility] Address [address] [place] [address] Care Team Providers Care Campus Coordinator Name Role Phone Almas Richards MD Primary Care Provider [phone] Surgical History Surgery Date Site/Laterality Comments OTHER SURGICAL HISTORY PROCEDURE: DENIES PREVIOUS SURGERY Medical History Medical History Date Comments Obese 06/03/2017 DX:Obese; COMMEN T: BMI at intake 42 Family History Medical History Relation Name Comments No Known Problems Mother Relation Name Status Comments Mother Alive Social History Tobacco Use Types Packs/Day Years Used Date Smoking Tobacco: Never Smokeless Tobacco: Never Alcohol Use Standard Drinks/Week Comments No 0 (1 standard drink = 0.6 oz pur e alcohol) Comments Unknown Sex and Gender Information Value Date Recorded Sex Assigned at Not on file Legal Sex Female 3:58 AM EST Gender Identity Not on file Sexual Orientation Not on file Obstetrics History Plan of Treatment Health Maintenance Due Date Last Done Comments Hepatitis B Vaccines (1 of 3 - 19+ 3-dose series) 01/15/2015 Cervical Cancer Screening: P ap Smear 06/18/2020 06/18/2017, 06/18/2017 HPV Vaccines (1 - 3-dose SCD M series) 01/15/2023 Depression Screening 03/11/2024 COVID-19 Vaccine ( - 2024-2 6 season) 2024 Influenza Vaccine (#1) 2024 12/20/2017 DTaP,Tdap,and Td Vaccines (2 - Td or Tdap) 11/09/2027 11/08/2017 RSV Immunization Adult Patients (1 - 1-dose 75+ series) 01/15/2071 HIB Vaccines Aged Out No longer eligi ble based on patient's age to complete this topic Hepatitis A Vaccines Aged Out No long er eligible based on patient's age to complete this topic IPV Vaccines Aged Out No longer eligi ble based on patient's age to complete this topic MMR Vaccines Aged Out No longer eligi ble based on patient's age to complete this topic Meningococcal ACWY Vaccine Aged Out N o longer eligible based on patient's age to complete this topic Meningococcal B Vaccine Aged Out No l onger eligible based on patient's age to complete this topic Pneumococcal Vaccine: Pediatrics (0 to 5 Years) and At-Risk Patients (6 to 49 Years) Aged Out No longer eligible b ased on patient's age to complete this topic RSV Immunization Patients Under 20 months Aged Out No longer eligible b ased on patient's age to complete this topic Varicella Vaccines Aged Out No longer eligible based on patient's age to complete this topic Procedures Procedure Name Priority Date/Time Associated Diagnosis Comments PAP SMEAR Routine 06/18/2017 from Last 3 Months or Most Recently Relevant to Health Maintenance Results * Pap smear (06/18/2017) 06/18/2017 Narrative HISTORICAL TESTING LAB RESULTING AGENCY - 06/21/2017 4:43 PM EDT [id number] THINPREP PAP, IMAGED: NEGATIVE FOR SQUAMOUS INTRAEPITHELIAL LESION AND MALIGNANCY . ABUNDANT PARTIALLY OBSCURING ACUTE INFLAMMATORY CELLS ARE PRESENT. PARAMJIT GU(ASCP) (CASE ELECTRONICALLY SIGNED 06 21 2017) ADEQUACY: SATISFACTORY. ENDOCERVICAL/TRANSFORMATION ZONE COMPONENT PRESENT. SOURCE: THINPREP PAP HPV IF ASCUS, CERVICAL, IMAGED: CLINICAL INFORMATION: HPV IF DIAGNOSIS OF ASCUS. , LMP 04/10/17 Z12,4M Z34,01 Beverly [facility] LAB CYTOLOGY ORDERABLES Final Result HISTORICAL TESTING LAB RESULTING AGENCY from Last 3 Months or Most Recently Relevant to Health Maintenance Care Teams Campus Coordinator Relationship Specialty Start Date End Date Almas Richards MD [address] [place] [address] PCP - General Internal Medicine 12/20/17
== END 2025-01-21 12:17 | disposition home or self-care (01) ==
LOC: HO.HBS 10:56
PROVIDERS: PCP Internal Medicine; Visit Provider Physician Assistant Surgical
DX: E66.9 Obesity, unspecified (principal); Z68.34 Body mass index [BMI] 34.0-34.9, adult; Z90.3 Acquired absence of stomach [part of]; Z98.84 Bariatric surgery status
CPT/HCPCS: 99214; G2211

== ENCOUNTER → 2025-01-21 10:55 | Outpatient (BNVA) | payer OTHER, SELFPAY | PROVIDERS: PCP Internal Medicine; Visit Provider Physician Assistant Surgical | DX: E66.9 Obesity, unspecified (principal); Z68.34 Body mass index [BMI] 34.0-34.9, adult; Z98.84 Bariatric surgery status | CPT/HCPCS: 99212 ==